=== PATIENT | male | born 1985 | race Caucasian/White ===

== ENCOUNTER 2016-08-29 09:38 | Inpatient (IN) | payer SELFPAY ==
[~2016-08-29] VITALS: Ht 180.3 cm; Wt 90.9 kg
[~2016-08-29 09:38] MED LIST: AMOX500T2 PO; GABA-336 PO; HYDR-3989 PO; NO DAILY MEDS
--- OUTSIDE RECORDS SUMMARY | 2016-08-29 09:44 | XMS REPORT ---
Author Author Jefferson Cardoza Organization [employer] Address Unknown Phone Unavailable Care Team Providers Care Radioactivity Technician Name Role Phone Jefferson Cardoza CP Unavailable Allergies, Adverse Reactions, Alerts Substance Reaction Event Type N.K.D.A. Info Not Available Non Drug Allergy Problems Problem Type Condition Code Onset Dates Condition Status Problem History of bipolar disorder Z86.59 Active Assessment Encounter for dental examination and cleaning without abnormal findings Z01.20 Active Problem Anxiety F41.9 Active Medications No Known Medications Procedures Procedure Coding System Code Date PANORAMIC FILM SEE ALSO CODE 58059 CPT-4 D0330 Apr 18, 2016 PALLIATSTEFANIE TX DENTAL PAIN-MINOR PROC CPT-4 D9110 Apr 18, 2016 LTD ORAL EVALUATION - PROBLEM FOCUS CPT-4 D0140 Apr 18, 2016 Results No Known Results Summary Purpose [employer] Submission
--- OUTSIDE RECORDS SUMMARY | 2016-08-29 09:44 | XMS REPORT ---
Author Author Tanya Negro [facility] Address [address], [place] [address] Care Team Providers Care Automobile Body Worker Name Role Phone Tanya Negro Unavailable [phone] PROBLEMS Type Condition ICD9-CM Code [id number] Code Onset Dates Condition Status SNOMED Code Problem Anxiety F41.9 Active 03586571 Problem History of bipolar disorder Z86.59 Active 368400250 Assessment Unspecified episodic mood disorder F39 Apr, Active 40473384 Assessment Encounter for consultation Z71.9 Apr, Active 988409663 Problem Unspecified episodic mood disorder F39 Active 81376569 Problem Anxiety disorder, unspecified F41.9 Active 175032890 ALLERGIES Unknown Allergies SOCIAL HISTORY No smoking Hx information available PLAN OF CARE VITAL SIGNS MEDICATIONS Unknown Medications RESULTS No Results PROCEDURES No Known procedures IMMUNIZATIONS No Known Immunizations
--- OUTSIDE RECORDS SUMMARY | 2016-08-29 09:44 | XMS REPORT ---
Author Author GENERATED, SYSTEM Organization Unknown Address Unknown Phone Unavailable Care Team Providers Care Rigging Loft Mechanic Name Role Phone UNASSIGNED DOCTOR , DOCTOR PP [phone] Reason For Visit Chief Complaint FEET FEEL NUMB Social History Functional Status Vital Signs Results Chemistry from 05/05/2015 3:38 PMSODIUM 140 MMOL/L (136-145 MMOL/L) POTASSIUM 3.5 MMOL/L (3.5-5.1 MMOL/L) CHLORIDE 104 MMOL/L (98-107 MMOL/L) TCO2 28.5 MMOL/L (21.0-32.0 MMOL/L) *ANION GAP 7.5 MMOL/L L (8.0-16.0 MMOL/L) BUN 17 MG/DL (7-18 MG/DL) CREATININE 1.03 MG/DL (0.70-1.30 MG/DL) *BUN/CREATININE RATIO 16.5 (9.1-17.0 ) GLUCOSE 138 MG/DL H (65-99 MG/DL) *GFR EST NON AFR GRE[place]DI[place] >90 ML/MIN *GFRA EST AFR AMER >90 ML/MIN CALCIUM 8.7 MG/DL (8.5-10.1 MG/DL) BILIRUBIN TOTAL 0.35 MG/DL (0.20-1.00 MG/DL) TOTAL PROTEIN 7.4 GM/DL (6.4-8.2 GM/DL) ALBUMIN 3.8 GM/DL (3.4-5.0 GM/DL) *GLOBULIN 3.6 GM/DL H (2.3-3.5 GM/DL) *A/G RATIO 1.1 MG/DL L (1.5-2.2 MG/DL) ALK PHOS 123 U/L H (46-116 U/L) ALT (SGPT) 50 U/L (14-59 U/L) AST (SGOT) 36 U/L (15-37 U/L) Hematology from 05/05/2015 3:38 PMWBC 5.7 X10e3/UL (3.6-11.2 X10e3/UL) RBC 4.86 X10e6/UL (4.06-5.63 X10e6/UL) HEMOGLOBIN 15.0 G/DL (12.5-16.3 G/DL) HEMATOCRIT 43.5 % (36.7-47.1 %) *MCV 89.6 FL (80.0-100.0 FL) *MCH 30.8 PG (27.0-33.0 PG) *MCHC 34.4 G/DL (32.0-36.0 G/DL) *RDW 13.1 % (12.3-17.0 %) *RDWSD 40.7 (37.1-47.8 ) PLATELET 251 X10e3/UL (159-386 X10e3/UL) *MPV 9.0 FL (7.4-10.4 FL) AUTOMATED DIFF PERFORMED SEGS 52.7 % *LYMPHOCYTES 29.7 % *MONOCYTES 10.6 % *EOSINOPHILS 5.9 % *BASOPHILS 1.1 % *ABSOLUTE NEUTROPHILS 3.00 X10e3/UL (1.80-7.80 X10e3/UL) *ABSOLUTE LYMPHOCYTES 1.70 X10e3/UL (1.00-3.00 X10e3/UL) *ABSOLUTE MONOCYTES 0.60 X10e3/UL (0.30-1.00 X10e3/UL) *ABSOLUTE EOSINOPHILS 0.30 X10e3/UL (0.00-0.50 X10e3/UL) *ABSOLUTE BASOPHILS 0.10 X10e3/UL (0.00-0.20 X10e3/UL) Problems Encounter Diagnosis No relevant problems exist. Encounters Encounter Diagnosis No relevant problems exist. Plan of Care Procedures No relevant procedures performed. Immunizations No immunizations administered or ordered. Hospital Course Hospital Discharge Instructions Allergies, Adverse Reactions, Alerts * Latex Allergy has not been assessed. * IV Contrast Allergy has not been assessed. Medication Medication reconciliation has not been performed.
--- OUTSIDE RECORDS SUMMARY | 2016-08-29 09:44 | XMS REPORT | Continuity of Care Document ---
Author Author PAULINA [facility] Organization [facility] Address Unknown Phone Unavailable Support Name Relationship Address Phone TAYLA PUTNAM MD Caregiver [address] [place] [address] [place] [phone] Unavailable Insurance Providers Guarantor Keyshawn Chen Address [address] [place] [id number] Email DENIED/NO PORTAL Payer [facility] Policy Number [id number] Subscriber's Name Keyshawn Chen Relationship 18 Self Group Number [id number] Advance Directives Directive Response Recorded Date/Time Advanced Directives Type None 04/18/16 9:26am Chief Complaint and Reason for Visit Chief Complaint Toothache Reason for Visit [id number] Problems Past Problems Medical Problem Onset Date Alcohol withdrawal Unknown Chest wall pain Unknown Dental infection Unknown Medications Current Home Medications Medication Dose Units Route Directions Days Qty Instructions Start Date Amoxicillin 500 Mg Tablet 500 Mg Oral Three Times A Day 10 Days 04/22 Gabapentin 100 Mg Capsule 2 Cap Oral Three Times A Day 04/18/16 Hydrocodone/Acetaminophen (Hydrocodon-Acetaminophen 5-325) 5-325 Tablet 1-2 Tab Oral Every 6 Hours as needed for Pain 15 Tablet 04/18/16 No Daily Meds 10/07/15 Social History Social History Problem Response Recorded Date/Time Onset Date Status Hx Substance Use Y IV DRUG USE, QUIT 6 MONTHS AGO 04/18/2016 9:46am Not Applicable Not Applicable Hx Alcohol Use Y 1-1 1/2 [place] DAILY 04/18/2016 9:46am Not Applicable Not Applicable Tobacco Usage smoke 10/07/2015 5:12am Not Applicable Not Applicable Query Response Start Date Stop Date Smoking Status Current every day smoker Hospital Discharge Instructions No hospital discharge instructions. Plan of Care Discharge Date 04/18/16 9:42am Disposition 01 DISCHARGED HOME, SELF-CARE Condition at Discharge Stable Instructions/Education Provided Tooth Abscess Prescriptions See Medication Section Additional Instructions/Education Follow-up with a dentist for further evaluation Care Plan and Goals Physician Care Plan Problem: Dental infection Goal: Follow up with primary care provider Instructions: Take medications and follow care plan as discussed/written Functional Status No functional status results. Allergies, Adverse Reactions, Alerts No known allergies. Immunizations No immunization records. Vital Signs Acute Vital Signs Vital Response Date/Time Temperature (Fahrenheit) 97.7 deg F (96.8 - 99.1) 04/18/2016 9:50am Temperature (Calculated Celsius) 36.58202 degrees C (36.0 - 37.3) 04/18/2016 9:50am Pulse Rate (adult) 97 bpm (60 - 100) 04/18/2016 9:50am Respiratory Rate 16 breaths/min (10 - 20) 04/18/2016 9:50am O2 Sat by Pulse Oximetry 100 % (90 - 100) 04/18/2016 9:50am Blood Pressure 169/95 mm Hg 04/18/2016 9:50am Height (Feet) 5 feet 04/18/2016 9:26am Height (Inches) 11.00 inches 04/18/2016 9:26am Weight (Kilograms) 89.000 kg 04/18/2016 9:26am Body Mass Index (BMI) 27.0 04/18/2016 9:26am Results No known relevant diagnostic tests, laboratory data and/or discharge summary. Procedures No known history of procedures. Encounters Encounter Location Arrival/Admit Date Discharge/Depart Date Attending Provider Departed Emergency Room [facility] 04/18/16 9:24am 04/18/16 9: 42am TAYLA PUTNAM MD Recent Diagnosis
--- OUTSIDE RECORDS SUMMARY | 2016-08-29 09:44 | XMS REPORT ---
Demographics Preferred Language Unknown Marital Status Unknown Buddhism Affiliation Unknown Race Unknown Ethnic Group Unknown Author Author Rena Hinson [facility] Address [address], [place] [id number] Care Team Providers Care Crew Car Driver Name Role Phone Rena Hinson Unavailable [phone] PROBLEMS Type Condition ICD9-CM Code [id number] Code Onset Dates Condition Status SNOMED Code Problem HTN (hypertension) I10 Active 08755722 Problem Plantar fasciitis M72.2 Active 637794811 Problem Cigarette nicotine dependence, uncomplicated F17.210 Active 572109580 Problem Substance abuse F19.10 Active 61021316 ALLERGIES Unknown Allergies SOCIAL HISTORY No smoking Hx information available PLAN OF CARE VITAL SIGNS MEDICATIONS Unknown Medications RESULTS No Results PROCEDURES No Known procedures IMMUNIZATIONS No Known Immunizations
--- OUTSIDE RECORDS SUMMARY | 2016-08-29 09:44 | XMS REPORT ---
Author Author Christine Pickard Organization [facility] Address [address] [place] [address] Care Team Providers Care Chicken Boner Name Role Phone NeerajChristine Unavailable [phone] PROBLEMS Type Condition ICD9-CM Code LAX24-RI Code Onset Dates Condition Status SNOMED Code Problem Anxiety F41.9 Active 90833783 Problem History of bipolar disorder Z86.59 Active 210558237 Assessment Anxiety F41.9 Apr, Active 46224620 Problem Unspecified episodic mood disorder F39 Active 54662966 Problem Anxiety disorder, unspecified F41.9 Active 073473491 ALLERGIES Substance Reaction Event Type Date Status N.K.D.A. Unknown Non Drug Allergy Apr, Unknown SOCIAL HISTORY No smoking Hx information available PLAN OF CARE VITAL SIGNS Weight 198 lbs 2016-04-18 Height 71.25 in 2016-04-18 Temperature 98.2 degrees Fahrenheit 2016-04-18 BMI 27.42 kg/m2 2016-04-18 Heart Rate 87 /min 2016-04-18 Oximetry 97 % 2016-04-18 Blood pressure systolic 148 mm Hg 2016-04-18 Blood pressure diastolic 100 mm Hg 2016-04-18 MEDICATIONS Medication Instructions Dosage Frequency Start Date End Date Duration Status Risperdal 2 MG Orally Twice every day 1 tablet 30 days Active RESULTS No Results PROCEDURES Procedure Date Ordered Related Diagnosis Body Site OFFICE VISIT, CIRCULAR KNITTER-LOW COMPLEXITY (30 MIN.) Apr 18, 2016 IMMUNIZATIONS No Known Immunizations
[2016-08-29] MEDS ORDERED: NORMAL SALINE 1,000 ML IV ONE ×2 (09:51→14:00)
--- OUTSIDE RECORDS SUMMARY | 2016-08-29 09:55 | XMS REPORT ---
Author Author GENERATED, SYSTEM Organization Unknown Address Unknown Phone Unavailable Care Team Providers Care Children'S Counselor Name Role Phone UNASSIGNED DOCTOR , DOCTOR PP [phone] Reason For Visit Chief Complaint FEET FEEL [...] H (65-99 MG/DL) *GFR EST NON AFR CITIZEN OF [place] >90 ML/MIN *GFRA EST AFR AMER >90 [...]
--- NOTE | 2016-08-29 09:59 | ERPDOC ---
Departure Disposition Decision Date: Aug 29, 2016 Disposition Decision Time: 15:10 Disposition: 02 TO [facility] Impression Impression Impression: Primary Impression: Perforated diverticulum Severity: Moderate Condition: Improved Seen By: Physician only Problems/Meds/Labs Reviewed?: Yes Medications reviewed and manag: Yes Follow up care ordered?: Yes Mental Status: Alert, Oriented HPI - Abdominal Pain General Chief Complaint: Abdominal Pain Stated Complaint: LOWER ABD PAIN Time Seen by Provider: 09:43 Source: patient (Patient presents to the ER with a 3 week complaint of intermittant LLQ pain and constipation. ) History/Exam Limitations: no limitations HPI - Abdominal Pain Occurred At: home Onset: Changing over time Duration: other Pain Scale: Now: 4/10, Worst: 10/10 Quality: cramping Location: LLQ Radiation: suprapubic Activities at Onset: none Modifying Factors: IMPROVES WITH: other (Laxitives) Associated Symptoms: denies symptoms Hx of Similar Symptoms: Yes Allergies: Coded Allergies: No Known Allergies (Unverified , 08/29/16) Past History Past Medical History Metabolic: hypertension Psychological: alcohol abuse, drug abuse Surgical History Denies Surgeries Family History Family PMH: FOUND: other Social History Smoking Status: Current every day smoker Does patient use chewing tobac: Yes # of Packs/Tins per Day: 0.5 Second Hand Exposure: Yes Substance Use Type: former substance user Substance last used: days (ago) Alcohol Intake: daily, 2+ drinks per day Last Drink: unknown Marital Status: Single Sexuality: female partner Housing: house Service: No Current Occupational Status: employed Occupational Hazard: No Advance Directives: Yes Full Code Record Review Pertinent history updated: Yes Review of Systems Constitutional Constitutional: DENIES: chills, fever Eyes Lids/Accessories: DENIES: erythema, swelling ENMT Ears: DENIES: erythema, pain Balance: DENIES: ataxia, vertigo Sinuses: DENIES: congestion, rhinorrhea Mouth/Throat: DENIES: sore throat Cardiovascular Cardiac: DENIES: chest pain, dyspnea on exertion, orthopnea Rhythm/Rate: DENIES: tachycardia Pulmonary Respiratory: DENIES: cough, dyspnea, sputum GI Upper Abdomen: DENIES: nausea, pain, vomiting Lower Abdomen: pain, DENIES: constipation, diarrhea General: DENIES: dysuria Musculoskeletal General: DENIES: cramps, pain, weakness Integumentary Skin: DENIES: color change, itching, rash Neurological General: DENIES: ataxia, change in strength, headache, numbness, poor coordination, seizures, syncope, vertigo, weakness Psychiatric Psychiatric: DENIES: anxiety, depression, nervousness Hematologic/Lymphatic Hematologic/Lymphatic: DENIES: anemia Allergic/Immunological Allergic/Immunoligical: DENIES: sneezing All other Systems All Other Systems: Reviewed and Negative Physical Exam General General Nourishment: well nourished, well developed, appears stated age, no acute distress, adult General Body Habitus: well groomed Vitals and Pain First Documented Vital Signs Date Time Temp Pulse Resp B/P Pulse Ox O2 Delivery O2 Flow Rate FiO2 08/29/16 09:40 97.9 87 14 138/85 99 Room Air Weight: Kilograms: Height (feet): 5 Height (inches): 11.00 Triage Pain Scale: RN VS reviewed by Provider: Yes Eyes (brief) Eyes Brief: found: EOMI, PERRL ENMT (brief) ENMT Brief: FOUND: TM clear, TM good light reflex, mucosa moist, NOT FOUND: pharnyx erythema Neck (brief) Neck: FOUND: trachea midline, NOT FOUND: adenopathy, nuchal rigidity, tenderness, tracheal deviation Respiratory (brief) Respiratory: FOUND: clear all nelson, equal bilaterally Cardiovascular (brief) Cardiac: FOUND: regular rate, regular rhythm Capillary Refill: <2 sec Pulses: all distal extremities, equal, strong Abdomen Inspection: NOT FOUND: distention Palpation: FOUND: soft, tender (llq), NOT FOUND: McBurney's point tender, Hurd's sign, Obturator sign, Psoas sign, Rosving's sign, aorta palpable, hepatomegaly, hernia, involuntary guarding, pulsating mass, rebound, splenomegaly, voluntary guarding Auscultation: FOUND: normoactive Lymphatic (brief) Lymphatic Brief: NOT FOUND: adenopathy Musculoskeletal (brief) Musculoskeletal Brief: NOT FOUND: spasm, tenderness Integumentary (brief) Integumentary Brief: FOUND: pink, warm Neurologic (brief) Neurological Brief: FOUND: CN w/o gross def to obs, gait w/o gross def to obs, motor-no gross deficits, sensory-no gross deficits, NOT FOUND: ataxia Psychiatric (brief) Psychiatric Brief: FOUND: alert, attentive, normal affect, oriented Differential Diagnoses Considering: Appendicitis, Biliary Colic, Bowel Obstruction, Cholecystitis, Constipation, Crohn's, Diverticulitis, Gastroenteritis, GERD, GI Bleed, Hepatitis, Hernia, IBS, Ileus, Neoplasm, Pancreatitis, Pyelonephritis, Renal Colic, Ulcer, Ulcerative Colitis, UTI, Other Progress Results/Orders Orders Procedure Category Date Status Time Iv Lock (Ed Only) EDM 08/29/16 Transmitted 09:51 Nothing By Mouth (Ed EDM 08/29/16 Transmitted Only) 09:51 Cbc W/Auto LAB 08/29/16 Complete Diff-Reflex Manual 09:51 Cmp - Comprehensive LAB 08/29/16 Complete Metabolic 09:51 Lipase LAB 08/29/16 Complete 09:51 Kub W/Upright RAD 08/29/16 Resulted 09:51 Normal Saline (Normal PHA 08/29/16 Complete Saline Iv) 09:51 Ethanol LAB 08/29/16 Complete Ketorolac (Toradol) PHA 08/29/16 Complete 10:15 UA, LAB 08/29/16 Complete Dip&Micro(Complete) & 11:53 Ct Abd/Pelvis CT 08/29/16 Resulted W/Contrast Only Iohexol (Omnipaque) PHA 08/29/16 Complete 12:54 Normal Saline (Ns) PHA 08/29/16 Complete 12:54 Saline Flush (Iv PHA 08/29/16 Complete Flush) 12:54 Normal Saline (Normal PHA 08/29/16 Complete Saline Iv) 14:00 Ertapenem (Invanz) PHA 08/29/16 In Process 15:15 Blood Culture CELESTE 08/29/16 Logged 15:16 Lactate - Lactic Acid LAB 08/29/16 Logged Procalcitonin LAB 08/29/16 Logged 15:16 Lactate - Lactic Acid LAB 08/29/16 Logged 19:46 Lab Results Laboratory Tests Test 08/29/16 10:22 08/29/16 11:53 White Blood Count 17.3T/MM3 Red Blood Count 4.63M/MM3 Hemoglobin 14.5GM/DL Hematocrit 43.0% Mean Corpuscular Volume 92.9UM3 Mean Corpuscular Hemoglobin 31.3UUG Mean Corpuscular Hemoglobin Concent 33.7GM/DL RDW Standard Deviation 40.9FL Platelet Count 374T/MM3 Mean Platelet Volume 11.0UM3 Immature Granulocyte % (Auto) % Neutrophils (%) (Auto) % Lymphocytes (%) (Auto) % Monocytes (%) (Auto) % Eosinophils (%) (Auto) % Basophils (%) (Auto) % Absolute Immature Granulocyte (auto T/MM3 Absolute Neutrophils (auto) T/MM3 Absolute Lymphocytes (auto) T/MM3 Absolute Monocytes (auto) T/MM3 Absolute Eosinophils (auto) T/MM3 Absolute Basophils (auto) T/MM3 Neutrophils % (Manual) 85.0% Lymphocytes % (Manual) 10.0% Monocytes % (Manual) 5.0% Absolute Neutrophils (Manual) 14.7T/MM3 Lymphocytes # (Manual) 1.7T/MM3 Monocytes # (Manual) 0.9T/MM3 Red Cell Morphology Comment Normal Turbidity < 20 Sodium Level 143MEQ/L Potassium Level 4.7MEQ/L Chloride Level 100MEQ/L Carbon Dioxide Level 21MEQ/L Anion Gap 22MEQ/L Blood Urea Nitrogen 21.0MG/DL Creatinine 0.9MG/DL Glomerular Filtration Rate Calc 99 BUN/Creatinine Ratio 23RATIO Glucose Level 98MG/DL Calculated Osmolality 278MOSM/KG Calcium Level 10.0MG/DL Total Bilirubin 0.80MG/DL Icterus Index < 2 Aspartate Amino Transf (AST/SGOT) 36U/L Alanine Aminotransferase (ALT/SGPT) 48U/L Alkaline Phosphatase 170U/L Total Protein 7.7G/DL Albumin 4.2G/DL Globulin 3.5G/DL Albumin/Globulin Ratio 1.2RATIO Lipase 17U/L Chemistry Specimen Hemolysis 22 Alcohol, Quantitative <10MG/DL Urine Collection Type Cleancatch-midstream Urine Color Yellow Urine Turbidity Clear Urine pH 6.0 Urine Specific [place] 1.025 Urine Protein 2+ Urine Glucose (UA) Negative Urine Ketones 3+ Urine Blood 1+ Urine Nitrite Negative Urine Bilirubin 2+ Urine Urobilinogen 2.0EU/DL Urine Leukocyte Esterase Negative Urine RBC 0-1/HPF Urine WBC 0-1/HPF Urine Bacteria 2+ Urine Mucus Present Urine Culture Indicated Cult not indicated Medications Current ED Medications Sodium Chloride (Normal Saline IV) 1,000 ml @ 0 mls/hr Q0M ONCE IV Last administered on 08/29/16 10:54; Start 08/29/16 at 09:51; Stop 08/29/16 at 09:55 ; Status DC Ketorolac Tromethamine (Toradol) 30 mg O ONCE IV Last administered on 10:54; Start 08/29/16 at 10:15; Stop 08/29/16 at 10:16; Status DC Iohexol 1 bottle 1 bottle STK-MED ONCE .ROUTE ; Start 08/29/16 at 12:54; Stop at 12:55; Status DC Sodium Chloride (NS) 100 ml @ As Directed STK-MED ONCE .ROUTE ; Start 08/29/16 at 12:54; Stop 08/29/16 at 12:55; Status DC Sodium Chloride 10 ml 10 ml STK-MED ONCE .ROUTE ; Start 08/29/16 at 12:54; Stop 08/29/16 at 12:55; Status DC Sodium Chloride 1,000 ml @ 0 mls/hr Q0M ONCE IV Last administered on 14:03; Start 08/29/16 at 14:00; Stop 08/29/16 at 14:01; Status DC Ertapenem/Sodium Chloride (Invanz/NS) 100 ml @ 200 mls/hr O ONCE IV ; Start at 15:15; Stop 08/29/16 at 15:44 Progress Progress Patient resting comfortably Consult/PCP Consult/PCP #1: Physician Contacted: Dr. Malin Time Called: 15:15 Time of first response: 15:17 Type of discussion: Phone Consult/PCP Discussion Details Admit to the Hospitalists if Possible Invanz 1gm IV Consult/PCP #2: Physician Contacted: Dr. Forde Time Called: 15:20 Time of first response: 15:25 Type of discussion: Admit Discussion/PCP Discussion Details Discussed patient examination, labs, CT findings Discussed Discusseion with Dr. Malin Comments Inpatient admit NS 100 ml/hr Blood cultures/Lactic Acid/Procalcitonin NPO Xray Xray : Reason for Exam: Abdominal Pain Xray: KUB Upright Interpretation: Normal, Reviewed Written Report CT CT : Reason for Exam: Abdominal Pain CT: Abd/Pelvis IV contrast Interpretation: Abnormal, Reviewed Written Report (Contained Perforated Diverticulum) JOHNNIE GRISSOM DO Aug 29, 2016 09:59
[2016-08-29] MEDS ORDERED: GABA-338 PO (10:04)
[2016-08-29] MEDS ORDERED: POLY119P3 PO (10:04)
[2016-08-29] MEDS ORDERED: RISP2TAB PO (10:04)
[2016-08-29] MEDS ORDERED: KETOROLAC 30mg/ml INJECTION IV ONE (10:15)
--- NOTE | 2016-08-29 10:28 | NUR ---
XRAY PT TO XRAY
[2016-08-29 10:35] LABS: HGB - HEMOGLOBIN 14.5 GM/DL (13.5-17.5); MEAN CORPUSCULAR HGB 31.3 UUG (26-34); MEAN CORPUSCULAR HGB CONC(MCHC 33.7 GM/DL (31-37); MEAN CORPUSCULAR VOLUME 92.9 UM3 (80-100); RED BLOOD COUNT 4.63 M/MM3 (4.50-5.90); WBC - WHITE BLOOD COUNT 17.3 T/MM3 (4.5-11.0)
--- NOTE | 2016-08-29 10:38 | NUR ---
XRAY PT RETURNED FROM XRAY
[2016-08-29 10:48] LABS: ALBUMIN 4.2 G/DL (3.5-5.0); ALBUMIN/GLOBULIN RATIO 1.2 RATIO (1.1-2.2); ALKALINE PHOSPHATASE 170 U/L (38-126); ALT (SGPT) 48 U/L (21-72); ANION GAP 22 MEQ/L (5-15); AST (SGOT) 36 U/L (17-59); BUN/CREATININE RATIO 23 RATIO (6-26); CHLORIDE 100 MEQ/L (98-107); CO2 - CARBON DIOXIDE 21 MEQ/L (22-30); CREATININE 0.9 MG/DL (0.8-1.5); GLOMERULAR FILTRATION RATE 99; GLUCOSE 98 MG/DL (75-110); LIPASE 17 U/L (23-300); POTASSIUM 4.7 MEQ/L (3.6-5); SODIUM 143 MEQ/L (134-144); TOTAL PROTEIN 7.7 G/DL (6.3-8.2)
[2016-08-29 11:05] LABS: LYMPHOCYTES # (MANUAL) 1.7 T/MM3 (1-4.8); MONOCYTES # (MANUAL) 0.9 T/MM3 (0-0.8); NEUTROPHILS #(MANUAL)-ABSOLUTE 14.7 T/MM3 (1.8-7.7); TOTAL CELLS COUNTED 100 %
--- NOTE | 2016-08-29 11:07 | DI ---
Indication: ITS.REASON: constipation / LLQ pain PROCEDURE: KUB W/UPRIGHT: Encounter: Initial Comparison: None Findings: The included portions of the lung bases are clear. Heart size normal. No pleural effusion. There is scattered gas and stool in the abdomen without evidence of obstruction or free air. No soft tissue mass or organomegaly. No abnormal calcification. There is mild bilateral sacroiliitis. No definite radiopaque urinary calculus. IMPRESSION: No evidence for obstruction or free air. No soft tissue mass or radiopaque urinary calculus. Mild bilateral sacroiliitis. .
[2016-08-29 12:02] LABS: BLOOD, URINE 1+ (NEGATIVE); COLOR,URINE YELLOW (YELLOW); LEUKOCYTE ESTERASE ,URINE NEGATIVE (NEGATIVE); NITRITE,URINE NEGATIVE (NEGATIVE)
[2016-08-29 12:15] LABS: MUCUS,URINE PRESENT
[2016-08-29 12:17] LABS: BACTERIA,URINE 2+ (NEGATIVE); RBC,URINE 0-1 /HPF (0-3); WBC,URINE 0-1 /HPF (0-5)
--- NOTE | 2016-08-29 12:25 | NUR ---
PT STATUS PT STATES HIS PAIN "COMES AND GOES" AND WHEN IT COMES IT IS A 6/10 NOW BUT HE FEELS LIKE T HE TORADOL HAS HELPED AND THE PAIN "COMES LESS FREQUENTLY". PT DOES NOT APPEAR TO BE IN ANY ACUTE DISTRESS.
[2016-08-29] MEDS ORDERED: IOHEXOL 300 MG/ML 100ml INJECTION ONE (12:54)
[2016-08-29] MEDS ORDERED: SALINE FLUSH 10ml SYRINGE ONE (12:54)
[2016-08-29] MEDS ORDERED: NORMAL SALINE 100 ML ONE (12:54)
--- NOTE | 2016-08-29 13:00 | NUR ---
CT PT TO CT PER COT.
--- NOTE | 2016-08-29 13:12 | NUR ---
CT RETURN PT RETURNED FROM CT AT THIS TIME.
--- NOTE | 2016-08-29 14:10 | NUR ---
PT STATUS PT STATES HE NO LONGER HAS PAIN UNLESS HE "PUSHES ON IT", IS RESTING COMFORTABLY AND DENIES ANY OTHER C/O, CALL LIGHT IN REACH.
--- NOTE | 2016-08-29 14:50 | DI ---
Indication: ITS.REASON: LLQ AND SUPRAPUBIC ABDOMINAL PAIN PROCEDURE: CT ABD/PELVIS W/CONTRAST ONLY: Encounter: Initial Comparison: None Technique: Axial CT images were performed through the abdomen and pelvis after the administration of intravenous contrast. Coronal and sagittal two-dimensional reformats. Automated Exposure Control and Iterative Reconstruction dose reducing techniques were utilized. Contrast: Omnipaque 300 99 mL Findings: CT ABDOMEN: Included portions of the lung bases are clear. Heart size normal. No pleural effusion. The liver, spleen, kidneys, pancreas, and adrenal glands are normal. The gallbladder is thin walled and nondistended, without stones. The abdominal aorta is non-aneurysmal, without significant atherosclerotic disease. There is no retroperitoneal or mesenteric adenopathy. CT PELVIS: There is a focal area of diverticulitis in the left pelvis near the pelvic brim with a probable small contained perforation. No peridiverticular abscess. There is no pelvic sidewall adenopathy. No free fluid. No definite bony destructive process. IMPRESSION: Short segment of diverticulitis in the left lower pelvis with a adjacent contained small focus of gas suggesting contained perforation. No evidence for free perforation. No peridiverticular abscess. .
--- NOTE | 2016-08-29 14:59 | NUR ---
PROVIDER DR. Jeanette GRISSOM IN ROOM WITH PT.
--- NOTE | 2016-08-29 15:10 | NUR ---
PROVIDER DR. WITT IN WITH PT.
[2016-08-29] MEDS ORDERED: ERTAPENEM 1 G in NORMAL SALINE 100 ML IV ONE (15:15)
--- NOTE | 2016-08-29 15:46 | NUR ---
REPORT REPORT CALLED TO KALA SAENZ.
[2016-08-29 15:58] VITALS: Ht 180.3 cm; Wt 90.9 kg
--- OUTSIDE RECORDS SUMMARY | 2016-08-29 15:58 | XMS REPORT ---
Author Author GENERATED, SYSTEM Organization Unknown Address Unknown Phone Unavailable Care Team Providers Care Senior Landscape Architect Name Role Phone UNASSIGNED DOCTOR , DOCTOR PP [phone] Reason For Visit Chief Complaint FEET FEEL [...] H (65-99 MG/DL) *GFR EST NON AFR [place] >90 ML/MIN *GFRA EST AFR AMER >90 [...]
[2016-08-29] MEDS ORDERED: ONDANSETRON 4mg/2ml INJECTION IV PRN (16:00)
[2016-08-29] MEDS ORDERED: FOLIC ACID 5 MG/ML INJECTION IV ONE (16:00)
[2016-08-29] MEDS ORDERED: THIAMINE 200mg/2ml INJECTION IV ONE (16:00)
--- NOTE | 2016-08-29 16:00 | NUR ---
ADMISSION PT WHEELED TO ROOM 109 BY ED STAFF. PT HELPED INTO BED. VS ASSESSED. PT ASSESSED. VS STABLE AT THIS TIME. PT RATES PAIN AT 4/10. PT ORIENTED TO SURROUNDINGS. WILL CONTINUE TO MONITOR.
--- NOTE | 2016-08-29 16:03 | HPPDOC ---
AP VEE ELECTROMECHANICAL INSPECTOR 08/29/16 1543: HPI - Adult Date DATE: 08/29/16 TIME: 15:38 General Chief Complaint: Abdominal pain History of Present Illness Jeancarlos Chen is a 31 y/o male who presented to [facility] on 08/29/16 for further evaluation of LLQ pain. He states his symptoms started about a month ago. His roommate's girlfriend had n/v/d, and he became sick with the same illness just as she felt better. He continued to have intermittent pain, especially to LLQ, along with nausea, night sweats, fever and chills. He later become constipated, and his symptoms improved after he had a bowel movement. Last bowel movement was 1 week ago. He's had some lower back discomfort, and for a while he thought he had a kidney stone (though he's never had one before and denies hematuria). His pain has also started to spread across his lower abdomen towards the right. He denies seeing any blood or having dark colored stools. He hasn't felt much like eating or drinking anything. He has felt weak and lightheaded. He denies any respiratory symptoms, dysuria, or rashes. Labs in the ED showed leukocytosis with WBC of 17.3. CT abdomen/pelvis demonstrated diverticulitis in the left lower pelvis with adjacent contained small focus of gas suggesting contained perforation. He received IVF and Invanz. Dr. Malin was consulted. Dr. Forde admitted the patient for systemic antibiotics, symptom relief, and surgical consultation. LOS is expected to exceed 2 overnights. Past Medical History Past Medical History Patient's Medical History: (1) Bipolar disorder (2) Alcohol abuse (3) Overweight (BMI 25.0-29.9) Surgical History Patient's Surgical History: Denies. Current Medications Home Meds Reported Medications Polyethylene Glycol 3350 (Miralax) 119 Gm Powder, 17 G PO DAILY 08/29/16 Risperidone (Risperdal) 2 Mg Tablet, 2 MG PO BID 08/29/16 Gabapentin (Gabapentin) 300 Mg Capsule, 300 MG PO TID 08/29/16 Allergies: Coded Allergies: No Known Allergies (Unverified , 08/29/16) Family History Family History: Positive for dementia, brain cancer, leukemia, and bipolar disorder. Social History Smoking Status: Current every day smoker (used to smoke a pack per day, now started vaping and smokes about 1 pack of cigarettes per week) Does patient use chewing tobac: Yes # of Packs/Tins per Day: 0.5 Second Hand Exposure: Yes Substance Use Type: former substance user, amphetamines (meth - injection; last used 16 months ago) Substance last used: days (ago) Alcohol Intake: daily, 2+ drinks per day (1/5 - 1L of whiskey per night; hx of alcohol withdrawal symptoms without seizure) Last Drink: unknown Marital Status: Single Sexuality: female partner Housing: house Service: No Current Occupational Status: employed 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 Pickard Review of Systems Constitutional: REPORTS: appetite decrease, chills, dizziness, fever, weakness Eyes Vision: DENIES: vision changes ENMT Sinuses: NOT FOUND: congestion, rhinorrhea Mouth/Throat: DENIES: sore throat Cardiovascular DENIES: chest pain, dyspnea on exertion Vascular: DENIES: pedal edema Pulmonary Respiratory: DENIES: cough, dyspnea GI Upper Abdomen: see HPI Lower Abdomen: see HPI General: DENIES: dysuria, hematuria Musculoskeletal General: DENIES: pain Lumbar: pain Integumentary Skin: DENIES: rash Neurological General: weakness, DENIES: ataxia, memory disturbances, syncope Psychiatric Psychiatric: other (Bipolar), DENIES: memory impairment Hematologic/Lymphatic DENIES: anemia Allergic/Immunological DENIES: frequent infections All Other Systems All Other Systems: Reviewed (remainder of 10-point ROS Neg.) Physical Exam General General Nourishment: well nourished, well developed Vital Signs Vital Signs Date Time Temp Pulse Resp B/P Pulse Ox O2 Delivery O2 Flow Rate FiO2 08/29/16 14:14 80 15 125/74 98 Room Air 08/29/16 09:40 97.9 Height (Feet): 5 Height (Inches): 11.00 Eyes Brief: FOUND: PERRL, NOT FOUND: scleral icterus ENMT Brief: FOUND: mucosa moist, NOT FOUND: pharnyx erythema Neck Brief: FOUND: other (mild erythema below left TMJ - nontender, no swelling ), NOT FOUND: adenopathy, nuchal rigidity Respiratory Auscultation: FOUND: normal, NOT FOUND: rales, rhonchi, wheezes Cardiovascular Auscultation: FOUND: S1, S2, regular Peripheral Pulses: 2+: Dorasalis Pedis (L), Dorsalis Pedis (R), Posterior Tibial (L), Posterior Tibial (R), Radial (L), Radial (R) Edema: 0: Anasarca, Arm (L), Arm (R), Face, Leg (L), Leg (R) Abdomen Inspection: NOT FOUND: distention Palpation: FOUND: soft, tender (LLA), NOT FOUND: involuntary guarding, rebound , voluntary guarding Auscultation: FOUND: hypoactive Lymphatic (brief) Lymphatic Brief: NOT FOUND: adenopathy Integumentary (brief) Integumentary Brief: FOUND: dry, pink, warm Integumentary General: FOUND: dry, warm Color: FOUND: pink Neurologic (brief) Neurological Brief: FOUND: cranial 2-12 intact (grossly), motor Neurologic GCS Eye Opening: (4)Spontaneous GCS Verbal: (5)Oriented GCS Motor: (6)Obeys Commands RN Documented GCS Total: 15 Psychiatric (brief) FOUND: alert, attentive, normal affect, oriented Laboratory Laboratory Tests Test 08/29/16 10:22 08/29/16 11:53 White Blood Count 17.3T/MM3 Red Blood Count 4.63M/MM3 Hemoglobin 14.5GM/DL Hematocrit 43.0% Mean Corpuscular Volume 92.9UM3 Mean Corpuscular Hemoglobin 31.3UUG Mean Corpuscular Hemoglobin Concent 33.7GM/DL RDW Standard Deviation 40.9FL Platelet Count 374T/MM3 Mean Platelet Volume 11.0UM3 Immature Granulocyte % (Auto) % Neutrophils (%) (Auto) % Lymphocytes (%) (Auto) % Monocytes (%) (Auto) % Eosinophils (%) (Auto) % Basophils (%) (Auto) % Absolute Immature Granulocyte (auto T/MM3 Absolute Neutrophils (auto) T/MM3 Absolute Lymphocytes (auto) T/MM3 Absolute Monocytes (auto) T/MM3 Absolute Eosinophils (auto) T/MM3 Absolute Basophils (auto) T/MM3 Neutrophils % (Manual) 85.0% Lymphocytes % (Manual) 10.0% Monocytes % (Manual) 5.0% Absolute Neutrophils (Manual) 14.7T/MM3 Lymphocytes # (Manual) 1.7T/MM3 Monocytes # (Manual) 0.9T/MM3 Red Cell Morphology Comment Normal Turbidity < 20 Sodium Level 143MEQ/L Potassium Level 4.7MEQ/L Chloride Level 100MEQ/L Carbon Dioxide Level 21MEQ/L Anion Gap 22MEQ/L Blood Urea Nitrogen 21.0MG/DL Creatinine 0.9MG/DL Glomerular Filtration Rate Calc 99 BUN/Creatinine Ratio 23RATIO Glucose Level 98MG/DL Calculated Osmolality 278MOSM/KG Calcium Level 10.0MG/DL Total Bilirubin 0.80MG/DL Icterus Index < 2 Aspartate Amino Transf (AST/SGOT) 36U/L Alanine Aminotransferase (ALT/SGPT) 48U/L Alkaline Phosphatase 170U/L Total Protein 7.7G/DL Albumin 4.2G/DL Globulin 3.5G/DL Albumin/Globulin Ratio 1.2RATIO Lipase 17U/L Chemistry Specimen Hemolysis 22 Alcohol, Quantitative <10MG/DL Urine Collection Type Cleancatch-midstream Urine Color Yellow Urine Turbidity Clear Urine pH 6.0 Urine Specific [place] 1.025 Urine Protein 2+ Urine Glucose (UA) Negative Urine Ketones 3+ Urine Blood 1+ Urine Nitrite Negative Urine Bilirubin 2+ Urine Urobilinogen 2.0EU/DL Urine Leukocyte Esterase Negative Urine RBC 0-1/HPF Urine WBC 0-1/HPF Urine Bacteria 2+ Urine Mucus Present Urine Culture Indicated Cult not indicated Assessment & Plan Problems: (1) Perforated diverticulum Status: Acute Assessment & Plan: 08/29/16 - CT Short segment of diverticulitis in the left lower pelvis with adjacent contained small focus of gas suggesting contained perforation. No evidence for free perforation. No peridiverticular abscess. (2) Bipolar disorder Status: Chronic Assessment & Plan: Ran out of Risperdal on 08/25/16 (3) Overweight (BMI 25.0-29.9) Status: Chronic (4) Alcohol abuse Status: Chronic Assessment & Plan: drinks daily Plan/Intensity of Service Admit, inpatient status for perforated diverticula. Attending: Dr. Forde. Consult Dr. Malin. Check lactate, procalcitonin, blood cultures. Invanz was started in the ED - will continue this daily. IVF - NS at 100 mL/hr. Diet - sips & chips. Zofran & Morphine PRN for symptom relief. Alcohol abuse - start thiamine & folate daily; Serax 30 mg TID. Monitor for withdrawal (although pt reports that he hasn't been able to drink most of the last several nights). Bipolar - resume home medications. PCP - Dr. Pickard. DVT Prophylaxis: SCD'S Code Status Full Code Hospital Course Summary Disclaimer The hospital course summary below is not to be considered part of the above Progress Note. Hospital Course Summary 08/29/16 Admit, inpatient status for perforated diverticula. Attending: Dr. Forde. Consult Dr. Malin. Check lactate, procalcitonin, blood cultures. Invanz was started in the ED - will continue this daily. IVF - NS at 100 mL/hr. Diet - sips & chips. Zofran & Morphine PRN for symptom relief. Alcohol abuse - start thiamine & folate daily; Serax 30 mg TID. Monitor for withdrawal (although pt reports that he hasn't been able to drink most of the last several nights). Bipolar - resume home medications. EMILIE FORDE MD 08/29/16 2449: Past Medical History Current Medications Home Meds Reported Medications Polyethylene Glycol 3350 (Miralax) 119 Gm Powder, 17 G PO DAILY 08/29/16 Risperidone (Risperdal) 2 Mg Tablet, 2 MG PO BID 08/29/16 Gabapentin (Gabapentin) 300 Mg Capsule, 300 MG PO TID 08/29/16 Allergies: Coded Allergies: No Known Allergies (Unverified , 08/29/16) Assessment & Plan Problems: (1) Perforated diverticulum Status: Acute Assessment & Plan: 08/29/16 - CT Short segment of diverticulitis in the left lower pelvis with adjacent contained small focus of gas suggesting contained perforation. No evidence for free perforation. No peridiverticular abscess. (2) Leukocytosis Status: Acute Qualifiers: Leukocytosis type: unspecified Qualified Codes: D72.829 - Elevated white blood cell count, unspecified Assessment & Plan: POA (3) Abdominal pain Status: Acute Qualifiers: Abdominal location: left lower quadrant Qualified Codes: R10.32 - Left lower quadrant pain (4) Nausea & vomiting Status: Acute Qualifiers: Vomiting type: unspecified Vomiting Intractability: non-intractable Qualified Codes: R11.2 - Nausea with vomiting, unspecified (5) Bipolar disorder Status: Chronic Assessment & Plan: Ran out of Risperdal on 08/25/16 (6) Alcohol abuse Status: Chronic Assessment & Plan: drinks daily (7) Overweight (BMI 25.0-29.9) Status: Chronic Plan/Intensity of Service Have independently interviewed and examined pt. Case discussed with ED physician and my ELECTROMECHANICAL INSPECTOR. Care plan developed with my supervision; agree with above. Developed left lower ab pain about 3-4 weeks ago. Severe initially, but did decrease after a few day. Pain since returned and waxes and wanes. Seems to be worse if passes stool. Having increase nausea and vomiting for the last 4 days. Not able to keep anything down. Notes f/c and sweats. Much more weak and unsteady. Lightheaded when stands. No falls or trauma. Breathing stable without SOA cough or congestion. No chest pressure or palpitations. No urinary pain, but decrease urine output noted. Lungs: clear, shallow breathing CV: regular AB: Soft, nondistended. BS decreased. Tender to palpation in mid to left lower quadrant. Ext: no edema MSE: awake alert appropriate. Plan: Inpatient admission. IV Invanc for antimicrobial coverage. IVF for hydration. NPO for bowel rest. Zofran and MS for nausea and pain control. IS to help pulmonary toilet due to pt shallow breathing secondary to ab pain. RT to tobacco cessation. Nicotine patch. IV lorazepam prn; routine Serax. Thiamine and folate due to ETOH use. IV Protonix as likely has some ETOHic gastritis. Sx consult. SCD. Monitor lab. AP VEE APRN Aug 29, 2016 15:43 EMILIE FORDE MD Aug 29, 2016 16:57
[2016-08-29] MEDS ORDERED: LORAZEPAM 2 MG/ML INJECTION IV PRN (16:15)
--- NOTE | 2016-08-29 16:21 | CONSPD ---
Consultation Info Date DATE: 08/29/16 TIME: 16:16 Date of Consultation: Aug 29, 2016 Attending Physician: GUSTAVO Forde Reason for Consultation: Diverticulitis HPI - Adult Date DATE: 08/29/16 TIME: 16:16 General Chief Complaint: Abdominal pain History of Present Illness PEr Dr. Malin Past Medical History Past Medical History Patient's Medical History: (1) Bipolar disorder (2) Alcohol abuse (3) Overweight (BMI 25.0-29.9) Surgical History Patient's Surgical History: Denies. Current Medications Home Meds Reported Medications Polyethylene Glycol 3350 (Miralax) 119 Gm Powder, 17 G PO DAILY 08/29/16 Risperidone (Risperdal) 2 Mg Tablet, 2 MG PO BID 08/29/16 Gabapentin (Gabapentin) 300 Mg Capsule, 300 MG PO TID 08/29/16 Allergies: Coded Allergies: No Known Allergies (Unverified , 08/29/16) Family History Family History: Positive for dementia, brain cancer, leukemia, and bipolar disorder. Social History Smoking Status: Current every day smoker (used to smoke a pack per day, now started vaping and smokes about 1 pack of cigarettes per week) Does patient use chewing tobac: Yes # of Packs/Tins per Day: 0.5 Second Hand Exposure: Yes Substance Use Type: former substance user, amphetamines (meth - injection; last used 16 months ago) Substance last used: days (ago) Alcohol Intake: daily, 2+ drinks per day (1/5 - 1L of whiskey per night; hx of alcohol withdrawal symptoms without seizure) Last Drink: unknown Marital Status: Single Sexuality: female partner Housing: house Service: No Current Occupational Status: employed 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, 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 Occupational Hazard: No Advance Directives: Yes Full Code, No DPOA for Healthcare Only GS Review of Systems General REPORTS fever, REPORTS chills Gastrointestional REPORTS constipation, REPORTS other (decreased appetite) Comments See HPI Musculoskeletal REPORTS back pain Neurological REPORTS muscle weakness Psychiatric REPORTS emotional instability (bipolar), REPORTS other (history of substance abuse) 10-point Review of Systems otherwise negative except HPI GS Physical Exam Vital Signs Date Time Temp Pulse Resp B/P Pulse Ox O2 Delivery O2 Flow Rate FiO2 08/29/16 15:57 97.9 74 14 124/68 98 Room Air Height (Feet): 5 Height (Inches): 11.00 Weight (Kilograms): 89.200 BMI 27.4 Laboratory Laboratory Tests 08/29/16 10:22 Laboratory Tests 08/29/16 10:22 VASYL HIGGINS APRN Aug 29, 2016 16:20
[2016-08-29] MEDS: OXAZEPAM 30 MG CAPSULE PO SCH (16:41)
[2016-08-29 16:45] VITALS: PULSE 74; RESP 14
[2016-08-29] MEDS: MORPHINE SULFATE 4 MG SYRINGE IV PRN ×2 (16:59→17:54)
[2016-08-29] MEDS: NORMAL SALINE 1,000 ML IV SCH (17:05)
[2016-08-29] MEDS: NICOTINE 21 MG PATCH TD SCH (17:16)
[2016-08-29] MEDS: PANTOPRAZOLE 40mg INJECTION IV SCH (17:16)
--- NOTE | 2016-08-29 17:21 | CONSF ---
DATE OF CONSULTATION 08/29/2016 FINDINGS Mr. Chen is a 31-year-old male whom I was asked to see through the emergency room today as a result of his history and physical findings of abdominal pain in conjunction with an abnormal CT scan revealing evidence for a probable contained perforated diverticulitis. Upon questioning the patient he informs me that about a month ago he had bout of some loose stools. He contributed this to perhaps having food poisoning. Patient states he then became somewhat constipated about three weeks ago and began to notice a pain within his left lower quadrant. This pain has persisted for the most part over the last three weeks. The pain has progressively become worse. Pain is made worse with movement. Pain is made somewhat better by lying down. Patient states that he has been nauseated in association with the pain and has been having episodes of vomiting after eating. The patient states that he has not eaten much in the last 24-48 hours. The patient was somewhat depressed because today was his 31th birthday and he was "stuck in the hospital." Patient denies pain similar to this in the past. He states he has been noticing a component of fever and chills. As a result of his nausea, vomiting, increasing abdominal pain, fever and chills he presented to the emergency room for further evaluation. PAST MEDICAL HISTORY, PAST SURGICAL HISTORY, MEDICATIONS, ALLERGIES, SOCIAL HISTORY, FAMILY HISTORY, REVIEW OF SYSTEMS Will be performed by my nurse practitioner, Solo Maldonado APRN PHYSICAL EXAMINATION GENERAL: Mr. Chen is a 31-year-old male who upon entering the emergency room earlier today was standing at the bedside and was "walking around." He did not appear to be in acute distress. VITAL SIGNS: Temperature 97.9, pulse 74, respirations 14, blood pressure 124/68, SAO2 98% on room air. HEENT: Normocephalic. Pupils are equally round and react to light and accommodation. CHEST: Clear to auscultation bilaterally. HEART: Regular rate and rhythm. Normal S1 and S2 without gallops, murmurs or clicks. ABDOMEN: Palpation of the abdomen does indeed reveal localized tenderness to the left lower quadrant of his abdomen. He does have a component of both voluntary and a slight component of some involuntary guarding with firm palpation of the left lower quadrant. There is, however, no evidence for rebound. The remaining abdomen is soft and nontender. One was able to palpate quite firmly within the right lower quadrant, right upper quadrant and left upper quadrant without resulting in severe pain. EXTREMITIES: Without clubbing, cyanosis, or edema. NEURO: Cranial nerves II-XII grossly intact. Patient is without focal motor or sensory deficits. LABORATORY/RADIOGRAPHIC EVALUATION The patient had a CBC obtained through the ER earlier today. He did have a component of leukocytosis with a white count of 17.3. Did have a left shift with 85% neutrophils. CMP was obtained and found to be essentially within normal limits. Alkaline phosphatase was slightly elevated at 170. UA was obtained and found to be abnormal in the fact that he was found have 3+ ketones, 2+ bilirubin. Nitrate was negative. Only 0-[address] scan of his abdomen and pelvis was obtained. CT scan of his abdomen and pelvis did reveal evidence for focal area of diverticulitis within the left pelvis near the pelvic brim. There was a "probable small contained perforation." No peridiverticular abscess was noted. ASSESSMENT 31-year-old gentleman with probable small microperforation of sigmoid colon secondary to diverticulitis. PLAN Patient is without an acute surgical abdomen at this time. It would be my recommendation that we admit him to the hospital and place him on broad-spectrum IV antibiotics. Will follow the patient closely with serial abdominal examinations. Will see if the patient's PCP or hospital system can admit the patient and consult me in regards to his abdominal pain. Will continue to follow along closely in the patient's care. PERLA
[2016-08-29 19:31] VITALS: BP 116/74; PULSE 69; RESP 16; TEMP 96.4; O2SAT 96
[2016-08-29] MEDS: RISPERIDONE 2 MG TABLET PO SCH (20:36)
[2016-08-29] MEDS: GABAPENTIN 300 MG CAPSULE PO SCH (20:37)
[2016-08-29 20:43] VITALS: PULSE 69; RESP 16
[2016-08-29] MEDS ORDERED: KETOROLAC 30mg/ml INJECTION IM PRN (22:00)
[2016-08-29] MEDS: KETOROLAC 30mg/ml INJECTION IV PRN (22:37)
[2016-08-30 00:09] VITALS: BP 123/70; PULSE 60; RESP 14; TEMP 97.1; O2SAT 97
[2016-08-30] MEDS: OXAZEPAM 30 MG CAPSULE PO SCH ×2 (00:48→09:16)
[2016-08-30] MEDS: MORPHINE SULFATE 4 MG SYRINGE IV PRN ×2 (01:01→09:18)
[2016-08-30] MEDS: NORMAL SALINE 1,000 ML IV SCH ×2 (01:30→13:08)
[2016-08-30 05:13] LABS: BASOPHILS % (AUTO) 0.3 % (0-2); EOSINOPHILS # (AUTO) 0.2 T/MM3 (0-0.5); EOSINOPHILS % (AUTO) 2.3 % (0-4); HCT - HEMATOCRIT 38.3 % (41-53); HGB - HEMOGLOBIN 12.5 GM/DL (13.5-17.5); IMMATURE GRANULOCYTE # (AUTO) 0.03 T/MM3 (0.00-0.03); IMMATURE GRANULOCYTE % (AUTO) 0.3 % (0.0-0.5); LYMPHOCYTES % (AUTO) 19.7 % (23-45); MEAN CORPUSCULAR HGB 31.3 UUG (26-34); MEAN CORPUSCULAR HGB CONC(MCHC 32.6 GM/DL (31-37); MEAN PLATELET VOLUME 10.9 UM3 (9.4-12.4); MONOCYTES # (AUTO) 1.5 T/MM3 (0-0.8); MONOCYTES % (AUTO) 15.6 % (0-9.0); NEUTROPHILS #(AUTO)-ABSOLUTE 6.1 T/MM3 (1.8-7.7); NEUTROPHILS % (AUTO) 61.8 % (33-66); RED BLOOD COUNT 3.99 M/MM3 (4.50-5.90); WBC - WHITE BLOOD COUNT 9.9 T/MM3 (4.5-11.0)
[2016-08-30 05:28] LABS: ALBUMIN 3.4 G/DL (3.5-5.0); ALBUMIN/GLOBULIN RATIO 1.1 RATIO (1.1-2.2); ALKALINE PHOSPHATASE 120 U/L (38-126); ALT (SGPT) 34 U/L (21-72); ANION GAP 12 MEQ/L (5-15); AST (SGOT) 26 U/L (17-59); BUN/CREATININE RATIO 18 RATIO (6-26); CALCIUM 8.9 MG/DL (8.4-10.2); CHLORIDE 104 MEQ/L (98-107); CO2 - CARBON DIOXIDE 27 MEQ/L (22-30); CREATININE 1.1 MG/DL (0.8-1.5); GLOMERULAR FILTRATION RATE 79; GLUCOSE 82 MG/DL (75-110); SODIUM 143 MEQ/L (134-144); TOTAL PROTEIN 6.6 G/DL (6.3-8.2)
--- NOTE | 2016-08-30 05:38 | NUR ---
SHIFT SUMMARY PT IS ALERT AND ORIENTED X3, VITAL SIGNS HAVE BEEN STABLE ON ROOM AIR, PT IS AFEBRILE. DENIES C/P,N/V AND SOA. PT HAS BEEN UP TO THE BATHROOM WITH A STANDBY TWICE THIS SHIFT. PT HAS NEEDED IV PAIN MEDICATION TWICE ON THIS SHIFT. PT HAS SLEPT THE MAJORITY OF THE NIGHT. SEIZURE PRECAUTIONS REMAIN IN PLACE. WILL CONTINUE TO MONITOR.
[2016-08-30 07:31] VITALS: BP 115/67; PULSE 87; RESP 16; TEMP 96.5; O2SAT 99
--- NOTE | 2016-08-30 08:38 | PNSURG ---
Subjective DATE: 08/30/16 TIME: 08:33 Interval History He indicates the LLQ pain is still significant needing Toradol and Morphine during the night. He chilled during the night. Denies chest pain. No stools since admission. Objective Vital Signs Date Time Temp Pulse Resp B/P Pulse Ox O2 Delivery O2 Flow Rate FiO2 08/30/16 07:31 96.5 87 16 115/67 99 Room Air Height (Feet): 5 Height (Inches): 11.00 Weight (Kilograms): 90.500 BMI 27.4 General Appearance: Awake (He was able to wake up easily verbal stimuli, but remained groogy.), Orientated x 3 Respiratory: FOUND: clear all nelson Cardiac: FOUND: regular rate, regular rhythm Abdominal Brief: FOUND: tender (LLQ) Laboratory Laboratory Tests 08/29/16 10:22 08/30/16 04:37 Laboratory Tests 08/29/16 10:22 08/30/16 04:37 GS Assessment & Plan Problems: (1) Perforated diverticulum Status: Acute Assessment Continue bowel rest Seriel abd exams DVT Prophylaxis: SCD'S Code Status Full Code Hospital Course Summary Disclaimer The visit summary below is not to be considered part of the above Progress Note. Hospital Course Summary 08/29/16 Admit, inpatient status for perforated diverticula. Attending: Dr. Forde. Consult Dr. Malin. Check lactate, procalcitonin, blood cultures. Invanz was started in the ED - will continue this daily. IVF - NS at 100 mL/hr. Diet - sips & chips. Zofran & Morphine PRN for symptom relief. Alcohol abuse - start thiamine & folate daily; Serax 30 mg TID. Monitor for withdrawal (although pt reports that he hasn't been able to drink most of the last several nights). Bipolar - resume home medications. VASYL HIGGINS STREET CLEANER Aug 30, 2016 08:36
[2016-08-30 09:00] VITALS: PULSE 87; RESP 16
[2016-08-30] MEDS: NICOTINE 21 MG PATCH TD SCH (09:10)
[2016-08-30] MEDS: PANTOPRAZOLE 40mg INJECTION IV SCH (09:10)
[2016-08-30] MEDS: NICOTINE PATCH REMOVAL TD SCH (09:11)
[2016-08-30] MEDS: FOLIC ACID 5 MG/ML INJECTION IV SCH (09:13)
[2016-08-30] MEDS: GABAPENTIN 300 MG CAPSULE PO SCH ×3 (09:16→21:22)
[2016-08-30] MEDS: THIAMINE 200mg/2ml INJECTION IV SCH (09:16)
[2016-08-30] MEDS: RISPERIDONE 2 MG TABLET PO SCH ×2 (09:16→21:22)
[2016-08-30] MEDS ORDERED: OXAZEPAM 15 MG CAPSULE PO PRN (10:00)
[2016-08-30 10:32] LABS: MAGNESIUM 2.4 MG/DL (1.6-2.3); PHOSPHORUS 3.7 MG/DL (2.5-4.5)
--- NOTE | 2016-08-30 10:41 | PNPDOC ---
Subjective Date DATE: 08/30/16 TIME: 10:22 Subjective The patient states that he is feeling about the same today. He still has some lower abdominal pain. He required pain medication last night. He denies any nausea or vomiting today. He states he does feel hungry. He denies any shortness of breath or chest pain. He has urinated at least twice since admission and states his urine is a little dark. He states prior to admission he was having occasional fevers, chills and sweats. He states he lost about 6 pounds. His been constipated and has not had a bowel movement in about a week. He has been eating very little prior to admission. He drinks a fifth to a liter of alcohol a day but was drinking less in the several days prior to admission because he could not keep it down. He has tried to quit drinking in the past and would be interested in hearing about alcohol cessation programs. He has had hallucinations in the past that he thinks are associated with quitting drinking. He has never had seizures. He feels a little anxious now about his health. He denies any hallucinations now. Objective Vital Signs Vital signs Vital Signs Date Time Temp Pulse Resp B/P Pulse Ox O2 Delivery O2 Flow Rate FiO2 08/30/16 09:18 15 08/30/16 09:00 87 08/30/16 07:31 96.5 115/67 99 Room Air GEN-alert, no acute distress, appears calm HEENT-sclera anicteric, pupils are equal, oropharynx is moist NECK-supple CV-regular rate and rhythm CHEST-clear to auscultation bilaterally ABD-soft, mild lower abdominal tenderness without rebound or guarding, no organomegaly, normal bowel sounds -no Rose EXT-no edema NEURO-no tremulousness, no signs of confusion or agitation, moves all 4 extremities without difficulty SKIN-warm and dry and without rashes Height (Feet): 5 Height (Inches): 11.00 Weight (Kilograms): 90.500 Laboratory Laboratory Laboratory Tests 08/29/16 10:22 08/30/16 04:37 Laboratory Tests 08/29/16 10:22 08/30/16 04:37 Microbiology Microbiology Microbiology Date/Time Source Procedure Growth Status 08/29/16 15:33 Peripheral/Iv Start Blood Culture - Preliminary CULTURE INITIATED - RESULTS PENDING Resulted 08/29/16 15:32 Peripheral/Iv Start Blood Culture - Preliminary CULTURE INITIATED - RESULTS PENDING Resulted Radiology CT abdomen and pelvis 08/29/2016 Included portions of the lung bases are clear. Heart size normal. No pleural effusion. The liver, spleen, kidneys, pancreas, and adrenal glands are normal. The gallbladder is thin walled and nondistended, without stones. The abdominal aorta is non-aneurysmal, without significant atherosclerotic disease. There is no retroperitoneal or mesenteric adenopathy. CT PELVIS: There is a focal area of diverticulitis in the left pelvis near the pelvic brim with a probable small contained perforation. No peridiverticular abscess. There is no pelvic sidewall adenopathy. No free fluid. No definite bony destructive process. IMPRESSION: Short segment of diverticulitis in the left lower pelvis with a adjacent contained small focus of gas suggesting contained perforation. No evidence for free perforation. No peridiverticular abscess. KUB 08/29/2016 IMPRESSION: No evidence for obstruction or free air. No soft tissue mass or radiopaque urinary calculus. Mild bilateral sacroiliitis. Assessment & Plan Problems: (1) Perforated diverticulum Status: Acute Assessment & Plan: 08/29/16 - CT Short segment of diverticulitis in the left lower pelvis with adjacent contained small focus of gas suggesting contained perforation. No evidence for free perforation. No peridiverticular abscess. (2) Leukocytosis Status: Resolved Qualifiers: Leukocytosis type: unspecified Qualified Codes: D72.829 - Elevated white blood cell count, unspecified Assessment & Plan: POA (3) Abdominal pain Status: Acute Qualifiers: Abdominal location: left lower quadrant Qualified Codes: R10.32 - Left lower quadrant pain (4) Nausea & vomiting Status: Resolved Qualifiers: Vomiting type: unspecified Vomiting Intractability: non-intractable Qualified Codes: R11.2 - Nausea with vomiting, unspecified (5) Bipolar disorder Status: Chronic Assessment & Plan: [facility] (6) Alcohol abuse Status: Chronic Assessment & Plan: drinks daily (7) Overweight (BMI 25.0-29.9) Status: Chronic Assessment Impression Contained perforated diverticulum Bipolar disorder-stable Alcohol abuse-no signs of alcohol withdrawal at this time Overweight Leukocytosis-resolved Nausea and vomiting-resolved Tobaccoism Mild anemia Plan Continue Invanz for perforated diverticulum. White count has normalized. No fevers, chills or sweats this hospitalization. Appreciate Dr. Malin's help. Diet per surgery Will decrease Serax as the patient does still somnolent. When necessary Serax will be available as well. Recommend nephrology social worker consult for alcohol treatment options. Tobacco cessation education Recheck labs tomorrow Increase activity as tolerated SCDs for DVT prophylaxis Continue Risperdal for bipolar disorder Plan/Intensity of Service Have independently interviewed and examined pt. Case discussed with ED physician and my PHARMACIST INTERN. Care plan developed with my supervision; agree with above. Developed left lower ab pain about 3-4 weeks ago. Severe initially, but did decrease after a few day. Pain since returned and waxes and wanes. Seems to be worse if passes stool. Having increase nausea and vomiting for the last 4 days. Not able to keep anything down. Notes f/c and sweats. Much more weak and unsteady. Lightheaded when stands. No falls or trauma. Breathing stable without SOA cough or congestion. No chest pressure or palpitations. No urinary pain, but decrease urine output noted. Lungs: clear, shallow breathing CV: regular AB: Soft, nondistended. BS decreased. Tender to palpation in mid to left lower quadrant. Ext: no edema MSE: awake alert appropriate. Plan: Inpatient admission. IV Invanc for antimicrobial coverage. IVF for hydration. NPO for bowel rest. Zofran and MS for nausea and pain control. IS to help pulmonary toilet due to pt shallow breathing secondary to ab pain. RT to tobacco cessation. Nicotine patch. IV lorazepam prn; routine Serax. Thiamine and folate due to ETOH use. IV Protonix as likely has some ETOHic gastritis. Sx consult. SCD. Monitor lab. DVT Prophylaxis: SCD'S Code Status Full Code Hospital Course Summary Disclaimer The hospital course summary below is not to be considered part of the above Progress Note. Hospital Course Summary 08/29/16 Admit, inpatient status for perforated diverticula. Attending: Dr. Forde. Consult Dr. Malni. Check lactate, procalcitonin, blood cultures. Invanz was started in the ED - will continue this daily. IVF - NS at 100 mL/hr. Diet - sips & chips. Zofran & Morphine PRN for symptom relief. Alcohol abuse - start thiamine & folate daily; Serax 30 mg TID. Monitor for withdrawal (although pt reports that he hasn't been able to drink most of the last several nights). Bipolar - resume home medications. RENATA TORRES MD Aug 30, 2016 10:25
--- NOTE | 2016-08-30 11:12 | NUR ---
CM CM IN TO VISIT WITH PT. CM EXPLAINED ROLE AND PROVIDED CONTACT INFORMATION. PT DENIES HOME NEEDS AND IS AWARE TO CONTACT CM SHOULD NEEDS ARISE.
[2016-08-30 15:38] VITALS: BP 138/76; PULSE 72; RESP 16; TEMP 96.8; O2SAT 93
[2016-08-30] MEDS: OXAZEPAM 15 MG CAPSULE PO SCH ×2 (15:45→21:22)
[2016-08-30] MEDS: KETOROLAC 30mg/ml INJECTION IV PRN (15:46)
[2016-08-30] MEDS: ERTAPENEM 1 G in NORMAL SALINE 100 ML IV SCH (16:22)
--- NOTE | 2016-08-30 18:48 | NUR ---
STATUS PT A/O X3 UP WITH ASSIST OF ONE WITH WALKER AND GAIT BELT. PT COMPLIANT WITH SIPS AND CHIPS BUT INCREASED TO CL LIQUIDS. CL LIQUID TRAY ORDERED. PT HAS BEEN SLEEPING ON AND OFF THROUGHOUT SHIFT. AMBULATED IN HALLS X2. PRN MORPHINE AND TORADOL GIVEN DOCUMENTED. ADEQUATE OUTPUT. PT RESTING IN BED WITH ALARM. CALL LIGHT WITHIN REACH. WILL CONTINUE TO MONITOR.
--- NOTE | 2016-08-30 19:25 | PNF ---
DATE OF SERVICE 08/30/2016 FINDINGS The patient states that he was feeling a little better. He continues to have left lower quadrant abdominal pain. EXAM Vitals: Afebrile, normotensive. Current vitals include temperature 96.8, pulse 72, respirations 16, blood pressure 138/76. CHEST: Clear to auscultation bilaterally. HEART: Regular rate and rhythm. Normal S1 and S2 without gallops, murmurs or clicks. ABDOMEN: Palpation of the still reveals localized tenderness to the left lower quadrant. The patient, however, does appear less tender today upon palpation in comparison to yesterday. Still has a component of some voluntary guarding. LABORATORY/RADIOGRAPHIC EVALUATION Patient had a CBC today and his white count has gone from 17,000 down to 9.9. CMP obtained and found to be essentially within normal limits. ASSESSMENT 31-year-old male with small microperforation, most likely secondary to diverticulitis involving the sigmoid colon. Patient making clinical and laboratory improvement. PLAN Will go ahead and give the patient some clear liquids this evening. Will continue with broad-spectrum antibiotics. Will continue to follow with serial abdominal examinations. Tomorrow if he continues to improve, will slowly advance diet. Overall pleased with the patient's progress at this time. PERLA
[2016-08-31 00:15] VITALS: BP 136/86; PULSE 76; RESP 12; TEMP 97.9; O2SAT 92
[2016-08-31] MEDS: NORMAL SALINE 1,000 ML IV SCH ×2 (00:19→09:54)
[2016-08-31] MEDS: KETOROLAC 30mg/ml INJECTION IV PRN ×2 (03:16→16:25)
[2016-08-31] MEDS: OXAZEPAM 15 MG CAPSULE PO SCH ×3 (03:16→21:23)
--- NOTE | 2016-08-31 05:07 | NUR ---
SHIFT SUMMARY PATIENT IS ALERT AND ORIENTED X3 THIS SHIFT. VITAL SIGNS ARE STABLE ON ROOM AIR. PATIENT AMBULATED IN HALLS WITH ASSIST X1 ONCE THIS SHIFT. OTHERWISE, PATIENT HAS SLEPT MOST OF SHIFT. ONE PRN DOSE OF TORADOL WAS GIVEN FOR PAIN. PATIENT DENIES ANY NAUSEA OR VOMITING. WILL CONTINUE TO MONITOR.
[2016-08-31 05:55] LABS: BASOPHILS % (AUTO) 0.4 % (0-2); EOSINOPHILS # (AUTO) 0.2 T/MM3 (0-0.5); HCT - HEMATOCRIT 38.4 % (41-53); HGB - HEMOGLOBIN 12.8 GM/DL (13.5-17.5); IMMATURE GRANULOCYTE # (AUTO) 0.03 T/MM3 (0.00-0.03); IMMATURE GRANULOCYTE % (AUTO) 0.4 % (0.0-0.5); LYMPHOCYTES # (AUTO) 1.6 T/MM3 (1-4.8); LYMPHOCYTES % (AUTO) 22.2 % (23-45); MEAN CORPUSCULAR HGB 31.3 UUG (26-34); MEAN CORPUSCULAR HGB CONC(MCHC 33.3 GM/DL (31-37); MEAN CORPUSCULAR VOLUME 93.9 UM3 (80-100); MEAN PLATELET VOLUME 11.3 UM3 (9.4-12.4); MONOCYTES # (AUTO) 1.2 T/MM3 (0-0.8); MONOCYTES % (AUTO) 16.8 % (0-9.0); NEUTROPHILS % (AUTO) 57.2 % (33-66); RED BLOOD COUNT 4.09 M/MM3 (4.50-5.90)
[2016-08-31 06:13] LABS: ANION GAP 14 MEQ/L (5-15); BUN/CREATININE RATIO 14 RATIO (6-26); CALCIUM 8.7 MG/DL (8.4-10.2); CHLORIDE 106 MEQ/L (98-107); CO2 - CARBON DIOXIDE 24 MEQ/L (22-30); CREATININE 0.8 MG/DL (0.8-1.5); GLOMERULAR FILTRATION RATE 114; GLUCOSE 88 MG/DL (75-110); POTASSIUM 3.8 MEQ/L (3.6-5); SODIUM 144 MEQ/L (134-144)
--- NOTE | 2016-08-31 08:48 | PNSURG ---
Subjective DATE: 08/31/16 TIME: 08:42 Interval History Sleeping upon my arrival, he awakened easily with verbal stimuli. States he slept fairly well during the night. Still having LLQ abd pain, but intensity has decreased. Upon palpation LLQ less tender than yesterday. He would like more to eat. Objective Vital Signs Date Time Temp Pulse Resp B/P Pulse Ox O2 Delivery O2 Flow Rate FiO2 08/31/16 00:15 97.9 76 12 136/86 92 Room Air Height (Feet): 5 Height (Inches): 11.00 Weight (Kilograms): 90.500 BMI 27.4 General Appearance: Orientated x 3 Respiratory: FOUND: clear all nelson Cardiac: FOUND: regular rate, regular rhythm Abdominal Brief: FOUND: BS normo active x4, tender (LLQ with palpation, but less than yesterday, I was able to palpate deeper with less than pain than yesterday) Laboratory Trend WBC's Test 08/29/16 10:22 08/30/16 04:37 08/31/16 04:49 White Blood Count 17.3T/MM3 (4.5-11.0) 9.9T/MM3 (4.5-11.0) 7.0T/MM3 (4.5-11.0) Laboratory Tests 08/29/16 10:22 08/30/16 04:37 08/31/16 04:50 Laboratory Tests 08/29/16 10:22 08/30/16 04:37 08/31/16 04:49 Assessment & Plan Problems: (1) Perforated diverticulum Status: Acute Assessment HGB 7.0 (9.9 yesterday and 17.3 on admission) LLQ pain is decreasing. No N/V. Will start full liquids, perhaps advance to regular by evening. Will need Diverticulitis protocol ABX upon discharge there a couple of options, Augmentin and Flagyl, Cipro and Flagyl, Bactrim and Flagyl, all per [facility] or Epocrates. DVT Prophylaxis: SCD'S Code Status Full Code Hospital Course Summary Disclaimer The visit summary below is not to be considered part of the above Progress Note. Hospital Course Summary 08/29/16 Admit, inpatient status for perforated diverticula. Attending: Dr. Forde. Consult Dr. Malin. Check lactate, procalcitonin, blood cultures. Invanz was started in the ED - will continue this daily. IVF - NS at 100 mL/hr. Diet - sips & chips. Zofran & Morphine PRN for symptom relief. Alcohol abuse - start thiamine & folate daily; Serax 30 mg TID. Monitor for withdrawal (although pt reports that he hasn't been able to drink most of the last several nights). Bipolar - resume home medications. VASYL HIGGINS SOFTWARE APPLICATIONS DESIGNER Aug 31, 2016 08:45
[2016-08-31] MEDS: NICOTINE PATCH REMOVAL TD SCH (09:00)
[2016-08-31] MEDS: PANTOPRAZOLE 40mg INJECTION IV SCH (09:52)
[2016-08-31] MEDS: FOLIC ACID 5 MG/ML INJECTION IV SCH (09:52)
[2016-08-31] MEDS: RISPERIDONE 2 MG TABLET PO SCH ×2 (09:53→21:23)
[2016-08-31] MEDS: THIAMINE 200mg/2ml INJECTION IV SCH (09:53)
[2016-08-31] MEDS: GABAPENTIN 300 MG CAPSULE PO SCH ×3 (09:53→21:23)
[2016-08-31] MEDS: NICOTINE 21 MG PATCH TD SCH (09:54)
[2016-08-31 10:24] VITALS: PULSE 76; RESP 12
[2016-08-31 10:57] VITALS: BP 148/88; PULSE 61; RESP 16; TEMP 97.4; O2SAT 99
--- NOTE | 2016-08-31 11:08 | NUR ---
CM CM IN TO VISIT PT. PT DENIES NEEDS AT THIS TIME AND IS AWARE TO CONTACT CM SHOULD NEEDS ARISE.
--- NOTE | 2016-08-31 12:37 | NUR ---
REFUSED WALK PT SLEEPING IN ROOM AT THIS TIME. THIS RN ROUNDING ON PT AND OFFERED A WALK, PT REFUSED. WILL TRY AGAIN AT A LATER TIME.
[2016-08-31] MEDS: ERTAPENEM 1 G in NORMAL SALINE 100 ML IV SCH (15:15)
[2016-08-31 16:35] VITALS: BP 154/98; PULSE 77; RESP 16; TEMP 97.4; O2SAT 93
[2016-08-31 18:07] VITALS: BP 139/85
--- NOTE | 2016-08-31 18:46 | NUR ---
PROGRESS NOTE PT ALERT AND ORIENTED X3. VITAL SIGNS STABLE, ON RA. ELEVATED BLOOD PRESSURE NOTED FOR 4PM VS, RECHECKED SHORTLY AFTER AND WAS PT'S BASELINE. THE PT HAS NS RUNNING AT 50 THROUGH HIS LEFT HAND IV SITE. THE PT HAS TOLERATED A FULL LIQUID DIET WELL AND DENIES NAUSEA. THE PT HAS BEEN GIVEN ONE DOSE OF PRN TORADOL THIS SHIFT FOR A HEADACHE. THE PT HAS WALKED THE HALLS TWICE THIS SHIFT, STEADY ON FEET. PT RESTING IN BED AT THIS TIME, PT REFUSES SCDS THIS SHIFT. NO CONCERNS NOTED, WILL CONTINUE TO MONITOR.
[2016-08-31] MEDS: ACETAMINOPHEN 500 MG TABLET PO PRN (19:39)
--- NOTE | 2016-08-31 19:59 | PNPDOC ---
Subjective Date DATE: 08/31/16 TIME: 19:55 Subjective The patient was seen this morning in his room. He stated he was starting to feel better. Appetite was improving. His pain was a 4 or 5 on a scale of 1-10. He had no nausea. He denied any anxiety, tremulousness or hallucinations. He denied any chest pains or shortness of breath. He was urinating without difficulty. Objective Vital Signs Vital signs Vital Signs Date Time Temp Pulse Resp B/P Pulse Ox O2 Delivery O2 Flow Rate FiO2 08/31/16 18:07 139/85 08/31/16 16:35 97.4 77 16 93 Room Air GEN-alert, oriented, no acute distress CV-regular rate and rhythm CHEST-clear to auscultation bilaterally ABD-soft, decreased tenderness , nondistended with positive hypoactive bowel sounds -no Rose EXT-no edema NEURO-no focal deficits, the patient is oriented and alert, no tremulousness SKIN-warm and dry and without rashes Height (Feet): 5 Height (Inches): 11.00 Weight (Kilograms): 90.500 Laboratory Laboratory Laboratory Tests 08/30/16 04:37 08/31/16 04:50 Laboratory Tests 08/30/16 04:37 08/31/16 04:49 Microbiology Microbiology Microbiology Date/Time Source Procedure Growth Status 08/29/16 15:33 Peripheral/Iv Start Blood Culture - Preliminary NO GROWTH AFTER 48 HOURS Resulted 08/29/16 15:32 Peripheral/Iv Start Blood Culture - Preliminary NO GROWTH AFTER 48 HOURS Resulted Assessment & Plan Problems: (1) Perforated diverticulum Status: Acute Assessment & Plan: 08/29/16 - CT Short segment of diverticulitis in the left lower pelvis with adjacent contained small focus of gas suggesting contained perforation. No evidence for free perforation. No peridiverticular abscess. (2) Leukocytosis Status: Resolved Qualifiers: Leukocytosis type: unspecified Qualified Codes: D72.829 - Elevated white blood cell count, unspecified Assessment & Plan: POA (3) Abdominal pain Status: Acute Qualifiers: Abdominal location: left lower quadrant Qualified Codes: R10.32 - Left lower quadrant pain (4) Nausea & vomiting Status: Resolved Qualifiers: Vomiting type: unspecified Vomiting Intractability: non-intractable Qualified Codes: R11.2 - Nausea with vomiting, unspecified (5) Bipolar disorder Status: Chronic Assessment & Plan: Ran out of Risperdal on 08/25/16 (6) Alcohol abuse Status: Chronic Assessment & Plan: drinks daily (7) Overweight (BMI 25.0-29.9) Status: Chronic Assessment 08/31/2016 Impression Contained perforated diverticulum-symptomatically improving Bipolar disorder-stable Alcohol abuse-no signs of alcohol withdrawal at this time on tapering doses of Serax Overweight Leukocytosis-resolved Nausea and vomiting-resolved Tobaccoism Mild anemia Plan Continue Invanz for perforated diverticulum. White count has normalized. No fevers, chills or sweats this hospitalization. Appreciate Dr. Malin's help. Diet per surgery Continue to taper Serax Recommend medical social consultant consult for alcohol treatment options. Tobacco cessation education Recheck labs tomorrow Increase activity as tolerated SCDs for DVT prophylaxis Continue Risperdal for bipolar disorder Plan/Intensity of Service Have independently interviewed and examined pt. Case discussed with ED physician and my [employer] TEACHER. Care plan developed with my supervision; agree with above. Developed left lower ab pain about 3-4 weeks ago. Severe initially, but did decrease after a few day. Pain since returned and waxes and wanes. Seems to be worse if passes stool. Having increase nausea and vomiting for the last 4 days. Not able to keep anything down. Notes f/c and sweats. Much more weak and unsteady. Lightheaded when stands. No falls or trauma. Breathing stable without SOA cough or congestion. No chest pressure or palpitations. No urinary pain, but decrease urine output noted. Lungs: clear, shallow breathing CV: regular AB: Soft, nondistended. BS decreased. Tender to palpation in mid to left lower quadrant. Ext: no edema MSE: awake alert appropriate. Plan: Inpatient admission. IV Invanc for antimicrobial coverage. IVF for hydration. NPO for bowel rest. Zofran and MS for nausea and pain control. IS to help pulmonary toilet due to pt shallow breathing secondary to ab pain. RT to tobacco cessation. Nicotine patch. IV lorazepam prn; routine Serax. Thiamine and folate due to ETOH use. IV Protonix as likely has some ETOHic gastritis. Sx consult. SCD. Monitor lab. DVT Prophylaxis: SCD'S Code Status Full Code Hospital Course Summary Disclaimer The hospital course summary below is not to be considered part of the above Progress Note. Hospital Course Summary 08/29/16 Admit, inpatient status for perforated diverticula. Attending: Dr. Forde. Consult Dr. Malin. Check lactate, procalcitonin, blood cultures. Invanz was started in the ED - will continue this daily. IVF - NS at 100 mL/hr. Diet - sips & chips. Zofran & Morphine PRN for symptom relief. Alcohol abuse - start thiamine & folate daily; Serax 30 mg TID. Monitor for withdrawal (although pt reports that he hasn't been able to drink most of the last several nights). Bipolar - resume home medications. 08/30/2016 Impression Contained perforated diverticulum Bipolar disorder-stable Alcohol abuse-no signs of alcohol withdrawal at this time Overweight Leukocytosis-resolved Nausea and vomiting-resolved Tobaccoism Mild anemia Plan Continue Invanz for perforated diverticulum. White count has normalized. No fevers, chills or sweats this hospitalization. Appreciate Dr. Malin's help. Diet per surgery Will decrease Serax as the patient does still somnolent. When necessary Serax will be available as well. Recommend medical social consultant consult for alcohol treatment options. Tobacco cessation education Recheck labs tomorrow Increase activity as tolerated SCDs for DVT prophylaxis Continue Risperdal for bipolar disorder RENATA TORRES MD Aug 31, 2016 19:59
[2016-09-01 00:50] VITALS: BP 140/96; PULSE 59; RESP 12; TEMP 97.2; O2SAT 93
--- NOTE | 2016-09-01 05:00 | NUR ---
SHIFT SUMMARY PATIENT IS ALERT AND ORIENTED X3 THIS SHIFT. VITAL SIGNS ARE STABLE ON ROOM AIR. PATIENT HAS BEEN UP AT [facility] IN ROOM. PATIENT HAS DECLINED AMBULATING AND SCDS THIS SHIFT. PATIENT HAD A HEADACHE EARLY IN SHIFT. AN ORDER WAS OBTAINED FOR PRN TYLENOL, AND DISCOMFORT RESOLVED. PATIENT HAS SLEPT QUIETLY THROUGH THE NIGHT.
[2016-09-01] MEDS: NORMAL SALINE 1,000 ML IV SCH (05:57)
[2016-09-01 08:40] VITALS: BP 153/102; PULSE 66; RESP 16; TEMP 96.4; O2SAT 97
[2016-09-01] MEDS: NICOTINE PATCH REMOVAL TD SCH (08:41)
[2016-09-01] MEDS: PANTOPRAZOLE 40mg INJECTION IV SCH (08:41)
[2016-09-01] MEDS: FOLIC ACID 5 MG/ML INJECTION IV SCH (08:41)
[2016-09-01] MEDS: NICOTINE 21 MG PATCH TD SCH (08:41)
[2016-09-01] MEDS: OXAZEPAM 15 MG CAPSULE PO SCH (08:41)
[2016-09-01] MEDS: THIAMINE 200mg/2ml INJECTION IV SCH (08:41)
[2016-09-01] MEDS: GABAPENTIN 300 MG CAPSULE PO SCH ×2 (08:42→15:15)
[2016-09-01] MEDS: RISPERIDONE 2 MG TABLET PO SCH (08:42)
[2016-09-01 08:48] LABS: BASOPHILS # (AUTO) 0.1 T/MM3 (0-0.2); BASOPHILS % (AUTO) 0.8 % (0-2); EOSINOPHILS # (AUTO) 0.2 T/MM3 (0-0.5); EOSINOPHILS % (AUTO) 3.7 % (0-4); HCT - HEMATOCRIT 42.2 % (41-53); HGB - HEMOGLOBIN 14.2 GM/DL (13.5-17.5); IMMATURE GRANULOCYTE # (AUTO) 0.04 T/MM3 (0.00-0.03); IMMATURE GRANULOCYTE % (AUTO) 0.6 % (0.0-0.5); LYMPHOCYTES # (AUTO) 1.8 T/MM3 (1-4.8); MEAN CORPUSCULAR HGB 31.2 UUG (26-34); MEAN CORPUSCULAR HGB CONC(MCHC 33.6 GM/DL (31-37); MEAN CORPUSCULAR VOLUME 92.7 UM3 (80-100); MEAN PLATELET VOLUME 10.7 UM3 (9.4-12.4); MONOCYTES # (AUTO) 0.9 T/MM3 (0-0.8); NEUTROPHILS #(AUTO)-ABSOLUTE 3.5 T/MM3 (1.8-7.7); NEUTROPHILS % (AUTO) 53.9 % (33-66); RED BLOOD COUNT 4.55 M/MM3 (4.50-5.90); WBC - WHITE BLOOD COUNT 6.6 T/MM3 (4.5-11.0)
[2016-09-01 09:01] LABS: ALBUMIN 3.7 G/DL (3.5-5.0); ANION GAP 11 MEQ/L (5-15); BUN/CREATININE RATIO 16 RATIO (6-26); CALCIUM 9.4 MG/DL (8.4-10.2); CHLORIDE 107 MEQ/L (98-107); CO2 - CARBON DIOXIDE 28 MEQ/L (22-30); CREATININE 0.8 MG/DL (0.8-1.5); GLOMERULAR FILTRATION RATE 114; GLUCOSE 116 MG/DL (75-110); PHOSPHORUS 5.1 MG/DL (2.5-4.5); POTASSIUM 4.6 MEQ/L (3.6-5); SODIUM 146 MEQ/L (134-144)
--- NOTE | 2016-09-01 11:05 | NUR ---
CM CM IN TO VISIT WITH PT. PT DID NOT FIND A RIDE HOME AND CAB VOUCHER WAS PROVIDED. PT DENIES ANY FURTHER HOME NEEDS AT TIME OF DC. PT IS AWARE TO CALL CM SHOULD NEEDS ARISE.
[2016-09-01] MEDS ORDERED: NICO1PAT16 TD (11:55)
[2016-09-01] MEDS ORDERED: SULF1TAB42 PO (11:55)
[2016-09-01] MEDS ORDERED: THIA100T13 PO (11:55)
[2016-09-01] MEDS ORDERED: ACET-2723 PO (11:55)
--- NOTE | 2016-09-01 12:10 | DSPDOC ---
General Date Date DATE: 09/01/16 TIME: 11:57 Attending Physician Tonia Jackson MD Admitting Physician Tonia Jackson MD Consulting Physician Juan Witt MD,Facs,Cws Admitting Diagnosis 1. Perforated Diverticulum Discharge Diagnosis Perforated diverticulum Bipolar disorder Alcohol abuse Overweight Procedures None Laboratory Laboratory Tests Test 08/31/16 04:49 08/31/16 04:50 09/01/16 08:29 White Blood Count 7.0T/MM3 (4.5-11.0) 6.6T/MM3 (4.5-11.0) Red Blood Count 4.09M/MM3 (4.50-5.90) 4.55M/MM3 (4.50-5.90) Hemoglobin 12.8GM/DL (13.5-17.5) 14.2GM/DL (13.5-17.5) Hematocrit 38.4% (41-53) 42.2% (41-53) Mean Corpuscular Volume 93.9UM3 (80-100) 92.7UM3 (80-100) Mean Corpuscular Hemoglobin 31.3UUG (26-34) 31.2UUG (26-34) Mean Corpuscular Hemoglobin Concent 33.3GM/DL (31-37) 33.6GM/DL (31-37) RDW Standard Deviation 41.4FL (36.9-50.2) 40.7FL (36.9-50.2) Platelet Count 360T/MM3 (130-400) 392T/MM3 (130-400) Mean Platelet Volume 11.3UM3 (9.4-12.4) 10.7UM3 (9.4-12.4) Immature Granulocyte % (Auto) 0.4% (0.0-0.5) 0.6% (0.0-0.5) Neutrophils (%) (Auto) 57.2% (33-66) 53.9% (33-66) Lymphocytes (%) (Auto) 22.2% (23-45) 27.0% (23-45) Monocytes (%) (Auto) 16.8% (0-9.0) 14.0% (0-9.0) Eosinophils (%) (Auto) 3.0% (0-4) 3.7% (0-4) Basophils (%) (Auto) 0.4% (0-2) 0.8% (0-2) Absolute Immature Granulocyte (auto 0.03T/MM3 (0.00-0.03) 0.04T/MM3 (0.00-0.03) Absolute Neutrophils (auto) 4.0T/MM3 (1.8-7.7) 3.5T/MM3 (1.8-7.7) Absolute Lymphocytes (auto) 1.6T/MM3 (1-4.8) 1.8T/MM3 (1-4.8) Absolute Monocytes (auto) 1.2T/MM3 (0-0.8) 0.9T/MM3 (0-0.8) Absolute Eosinophils (auto) 0.2T/MM3 (0-0.5) 0.2T/MM3 (0-0.5) Absolute Basophils (auto) 0.0T/MM3 (0-0.2) 0.1T/MM3 (0-0.2) Turbidity < 20 (0-20) < 20 (0-20) Sodium Level 144MEQ/L (134-144) 146MEQ/L (134-144) Potassium Level 3.8MEQ/L (3.6-5) 4.6MEQ/L (3.6-5) Chloride Level 106MEQ/L (98-107) 107MEQ/L (98-107) Carbon Dioxide Level 24MEQ/L (22-30) 28MEQ/L (22-30) Anion Gap 14MEQ/L (5-15) 11MEQ/L (5-15) Blood Urea Nitrogen 11.0MG/DL (9-20) 13.0MG/DL (9-20) Creatinine 0.8MG/DL (0.8-1.5) 0.8MG/DL (0.8-1.5) Glomerular Filtration Rate Calc 114 114 BUN/Creatinine Ratio 14RATIO (6-26) 16RATIO (6-26) Glucose Level 88MG/DL (75-110) 116MG/DL (75-110) Calculated Osmolality 275MOSM/KG (261-280) 282MOSM/KG (261-280) Calcium Level 8.7MG/DL (8.4-10.2) 9.4MG/DL (8.4-10.2) Icterus Index < 2 (0-7) < 2 (0-7) Chemistry Specimen Hemolysis < 15 (0-25) < 15 (0-25) Phosphorus Level 5.1MG/DL (2.5-4.5) Albumin 3.7G/DL (3.5-5.0) Microbiology Microbiology Date/Time Source Procedure Growth Status 08/29/16 15:33 Peripheral/Iv Start Blood Culture - Preliminary NO GROWTH AFTER 48 HOURS Resulted 08/29/16 15:32 Peripheral/Iv Start Blood Culture - Preliminary NO GROWTH AFTER [address] abdomen and pelvis Findings: CT ABDOMEN: Included portions of the lung bases are clear. Heart size normal. No pleural effusion. The liver, spleen, kidneys, pancreas, and adrenal glands are normal. The gallbladder is thin walled and nondistended, without stones. The abdominal aorta is non-aneurysmal, without significant atherosclerotic disease. There is no retroperitoneal or mesenteric adenopathy. CT PELVIS: There is a focal area of diverticulitis in the left pelvis near the pelvic brim with a probable small contained perforation. No peridiverticular abscess. There is no pelvic sidewall adenopathy. No free fluid. No definite bony destructive process. IMPRESSION: Short segment of diverticulitis in the left lower pelvis with a adjacent contained small focus of gas suggesting contained perforation. No evidence for free perforation. No peridiverticular abscess. History of Present Illness Jeancarlos Chen is a 31 y/o male who presented to [facility] ED on 08/29/16 for further evaluation of LLQ pain. He states his symptoms started about a month ago. His roommate's girlfriend had n/v/d, and he became sick with the same illness just as she felt better. He continued to have intermittent pain, especially to LLQ, along with nausea, night sweats, fever and chills. He later become constipated, and his symptoms improved after he had a bowel movement. Last bowel movement was 1 week ago. He's had some lower back discomfort, and for a while he thought he had a kidney stone (though he's never had one before and denies hematuria). His pain has also started to spread across his lower abdomen towards the right. He denies seeing any blood or having dark colored stools. He hasn't felt much like eating or drinking anything. He has felt weak and lightheaded. He denies any respiratory symptoms, dysuria, or rashes. Labs in the ED showed leukocytosis with WBC of 17.3. CT abdomen/pelvis demonstrated diverticulitis in the left lower pelvis with adjacent contained small focus of gas suggesting contained perforation. He received IVF and Invanz. Dr. Witt was consulted. Dr. Forde admitted the patient for systemic antibiotics, symptom relief, and surgical consultation. LOS is expected to exceed 2 overnights. Hospital Course 09/01/2016 The patient states he is feeling well today. He denies any abdominal pain. He is eating regular food without difficulties. He has had some soft bowel movements. No nausea or vomiting. No shortness of breath. No confusion. No tremulousness. His legs are a little restless and he states that that's common for him after he takes his Risperdal. Overall, the patient has done quite well and appears to be ready for dismissal to home. On exam today he is alert and oriented 3 and in no acute distress. He does not have any tremulousness of his hands. His legs are a little bit restless. His thought processes are normal. Chest is clear to auscultation. Cardiovascular reveals a regular rate and rhythm. Abdomen is soft and nontender and nondistended with positive bowel sounds. He has not required any narcotics for over 48 hours. He had a shot of Toradol yesterday afternoon but has not required any other pain medication. Hospital course The patient was admitted with diagnosis of ruptured diverticulum which was contained. Dr. Witt did evaluate the patient and he recommended IV Invanz and bowel rest. The patient has done quite well. Leukocytosis has resolved. Abdominal pain has resolved. He has tolerated restarting a regular diet. Regarding his ruptured diverticulum, it was felt that he was stable for dismissal to home today. We'll discontinue Invanz after today's dose and will start Bactrim DS 1 by mouth twice a day for 7 days to start tomorrow. It was found during this hospital course that the patient is drinking a large amount of alcohol. He is uncertain if he wants to quit drinking alcohol but is open to talking with our social insurance adviser regarding treatment options. He will talk with the social insurance adviser today prior to discharge. I did recommend to the patient that he quit drinking alcohol. The patient also has bipolar disorder and has been taking his usual Resporal which she states is working well. He did state that it causes his legs to be somewhat restless and I did recommend that he discuss this with Dr. Ocampo. Regarding tobaccoism, the patient is on nicotine patch and will give him a prescription for nicotine patch at discharge if he decides to quit smoking. Patient will need follow-up in the next one week with Dr. Ocampo. The patient should follow-up in the next 2-[address] Witt and they will consider a colonoscopy at that time. If the patient should develop excessive diarrhea, increased abdominal pain, frequent nausea or vomiting, any rash, any confusion, or any other concerning symptoms he should seek medical attention. The patient was given a cab voucher on the day of dismissal. Greater than 30 minutes of time was spent seeing and evaluating the patient on dismissal day. Problems: (1) Perforated diverticulum Status: Acute Assessment & Plan: 08/29/16 - CT Short segment of diverticulitis in the left lower pelvis with adjacent contained small focus of gas suggesting contained perforation. No evidence for free perforation. No peridiverticular abscess. (2) Leukocytosis Status: Resolved Assessment & Plan: POA (3) Abdominal pain Status: Acute (4) Nausea & vomiting Status: Resolved (5) Bipolar disorder Status: Chronic Assessment & Plan: Ran out of Risperdal on 08/25/16 (6) Alcohol abuse Status: Chronic Assessment & Plan: drinks daily (7) Overweight (BMI 25.0-29.9) Status: Chronic DVT Prophylaxis: SCD'S Code Status Full Code Home Meds Active Scripts Sulfamethoxazole/Trimethoprim (Bactrim Ds Tablet) 1 Each Tablet, 1 TAB PO BID, # 14 TAB Take 1 tablet, by mouth, 2 times a day. Prov:TONIA JACKSON MD 09/01/16 Thiamine (Thiamine HCl) 100 Mg Tablet, 100 MG PO DAILY, #30 TAB Prov:TONIA JACKSON MD 09/01/16 Acetaminophen (Tylenol Extra Strength) 500 Mg Tablet, 1000 MG PO Q6HR Y for PAIN , #30 TAB Prov:TONIA JACKSON MD 09/01/16 Nicotine (Nicotine Patch 21 mg/24hr) 1 Each Patch.td24, 1 REMOVAL TD DAILY, #28 Prov:TONIA JACKSON MD 09/01/16 Reported Medications Polyethylene Glycol 3350 (Miralax) 119 Gm Powder, 17 G PO DAILY 08/29/16 Risperidone (Risperdal) 2 Mg Tablet, 2 MG PO BID 08/29/16 Gabapentin (Gabapentin) 300 Mg Capsule, 300 MG PO TID 08/29/16 Face to Face Encounter I met with patient on the day of dismissal and discussed follow up appointments , medications, and safety plan. Discharge Disposition Dismiss to home in stable condition Copies To 1: KOLBY OCAMPO Copies To 2: JUAN WITT MD, FACS, CWS TONIA JACKSON MD Sep 01, 2016 12:00
[2016-09-01] MEDS: ERTAPENEM 1 G in NORMAL SALINE 100 ML IV SCH (12:12)
--- NOTE | 2016-09-01 12:14 | NUR ---
INVANZ VERBAL ORDERS TO GIVE 1500 DOSE OF INVANZ 1 G IV NOW DUE TO PT BEING DISMISSED. WILL CONTINUE TO MONITOR.
[2016-09-01] MEDS: ACETAMINOPHEN 500 MG TABLET PO PRN (12:53)
--- NOTE | 2016-09-01 15:10 | NUR ---
CM THIS WORKER MET WITH PT ON THIS DATE. 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 PT REPORTED HIS DAILY ALCOHOL INTAKE A REPLACEMENT FOR HIS DRUG ADDICTION. PT REPORTED THAT HE GAVE UP METH AND THEN STARTED DRINKING EVERYDAY. PT REPORTED THAT HE HAD COMPLETED TREATMENT AT [facility] IN [place] AND THAT HE "MIGHT" BE INTERESTED IN COMPLETING TREATMENT AGAIN THERE. THIS WORKER GAVE PT THE PHONE NUMBER TO COMPLETE A DRUG AND ALCOHOL ASSESSMENT AND THAT [facility] (THROUGH A [facility]) COULD PAY FOR THE ASSESSMENT COST. THIS WORKER INQUIRED WITH PT REGARDING COST AND ACCESS TO OBTAINING HIS MEDICATIONS AT TIME OF DISCHARGE. PT REPORTED THAT HE NEEDED ASSISTANCE HE DOESN'T THINK THAT HE HAS A JOB NOW THAT HE HAS BEEN IN THE HOSPITAL. PT REPORTED THAT HE IS DISCHARGING TO A FRIEND'S HOME. PT REPORTED THAT HE IS GOING TO BE TEMPTED TO DRINK AGAIN. THIS WORKER OFFERED [facility] IN [facility]. PT REPORTED THAT HE HAS BEEN BANNED FROM THE [facility] IN [facility] BECAUSE HE WAS CAUGHT SMOKING METH AT THE [facility]. PT REPORTED THAT HE WOULD HAVE FOLLOW UP WITH [facility]. THIS WORKER MADE ARRANGEMENTS WITH [facility] AND PT THAT HIS MEDICATIONS WOULD BE FILLED BY [facility] AND THAT HE WOULD BE GIVEN CAB VOUCHER TO GET TO THE PHARMACY AND THEN HOME AFTER. PT WAS ALSO GIVEN THIS WORKER'S CONTACT INFORMATION AND ENCOURAGED TO CONTACT THIS WORKER WITH ANY ADDITIONAL NEEDS EVEN AFTER DISCHARGE. PT WAS GIVEN DRUG AND ALCOHOL RESOURCES AND ENCOURAGED TO FOLLOW UP. THIS WORKER ATTEMPTED TO REACH [facility] TO OBTAIN A DRUG AND ALCOHOL ASSESSMENT. MESSAGE LEFT ON THIS DATE.
--- NOTE | 2016-09-01 15:34 | NUR ---
PRESCRIPTIONS PRESCRIPTIONS FOR BACTRIM DS TABLET 1 TAB PO BID DISPENSE 14 TABS, NICOTINE PATCH 21 MG/24 HOUR 1 REMOVAL TD DAILY DISPENSE 28 PATCH, AND THIAMINE HCL 100 MG TAB, 1 TAB PO DAILY DISPENSE 30 TABS. CALLED INTO [facility] TO [facility]ERIS. Addendum: 09/01/16 at [id number] by KALA LARKIN RN CALLED IN AT [id number]
--- NOTE | 2016-09-01 15:37 | NUR ---
DISCHARGE PT DISCHARGED TO HOME IN GOOD CONDITION. PT TOLERATING REGULAR DIET WELL. DIVERTICULITIS AND DIVERTICULITIS DC INSTRUCTIONS REVIEWED WITH PT. PT VERBALIZED UNDERSTANDING. FOLLOWUP APPOINTMENTS REVIEWED WITH PT. INFORMED PT OF 'S DC ORDERS FOR NO ALCOHOL AND ENCOURAGING ALCOHOL REHAB. PT VERBALIZED UNDERSTANDING. 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 PT EXITED OUT FRONT ENTRANCE.
--- NOTE | 2016-09-01 19:10 | PNF ---
DATE OF SERVICE 09/01/2016 FINDINGS Mr. Chen today states that he wants "something eat." He states his abdominal pain has markedly improved. EXAM VITAL SIGNS: Afebrile, normotensive. Current vitals include temperature 96.4, pulse 66, respirations 16, blood pressure 153/102, SAO2 97% on room air. CHEST: Clear to auscultation bilaterally. HEART: Regular rate and rhythm. Normal S1 and S2 without gallops, murmurs or clicks. ABDOMEN: His abdominal tenderness has markedly improved. I was able to palpate quite firmly today within the left lower quadrant that only seemed to elicit some minimal discomfort to the patient. There was no evidence for any significant guarding. No evidence for hepatomegaly or other abnormal masses. ASSESSMENT 31-year-old gentleman with history for perforated colon most likely secondary to diverticulitis. PLAN I did review the patient's lab work and his white count is 6.6 today. BMP obtained and found to be overall within normal limits. Will go ahead and place the patient on a regular diet today. Will plan on discharge from our facility this afternoon. The patient will need to be discharged on some additional medication, either Cipro, Flagyl or Bactrim for an additional week's duration. On an outpatient basis in four to six weeks I would recommend that the patient undergo a colonoscopy for further evaluation of this abnormality noted on CT scan to document that the patient does indeed have diverticula and not some other underlying etiology for his microperforation. PERLA
[2016-09-02] MEDS ORDERED: FOLIC ACID 1 MG TABLET PO SCH (09:00)
[2016-09-02] MEDS ORDERED: THIAMINE 100 MG TABLET PO SCH (09:00)
--- NOTE | 2016-09-05 12:36 | NUR ---
FOLLOW UP THIS WORKER LEFT MESSAGE WITH WILMAR SCHAFFER AT [phone]. THIS WORKER ALSO LEFT MESSAGE WITH PT ON THIS DATE.
== END 2016-09-01 15:28 | disposition home or self-care (01) | DRG 392 ==
LOC: ED 09:38 → EDHOLD 15:30 → SRG 15:57
PROVIDERS: ADMIT Hospitalist; ATTEND Internal Medicine
DX: K57.80 Diverticulitis of intestine, part unspecified, with perforation and abscess without bleeding (principal); R11.2 Nausea with vomiting, unspecified; F10.20 Alcohol dependence, uncomplicated; F31.9 Bipolar disorder, unspecified; F17.210 Nicotine dependence, cigarettes, uncomplicated; E66.3 Overweight; Z68.27 Body mass index [BMI] 27.0-27.9, adult
CPT/HCPCS: 36415; 80048; 80053; 80069; 80307; 81001; 83605; 83690; 83735; 84100; 84145; 85025; 87040; 96361; 96374; 99406

== ENCOUNTER 2016-09-29 16:15 | Emergency (ER) | payer SELFPAY ==
[~2016-09-29] VITALS: Ht 180.3 cm; Wt 85.9 kg
[~2016-09-29 16:15] MED LIST changes: +ACET-2723 PO; -AMOX500T2 PO; -GABA-336 PO; +GABA-338 PO; -HYDR-3989 PO; +NICO1PAT16 TD; -NO DAILY MEDS; +POLY119P3 PO; +RISP2TAB PO; +SULF1TAB42 PO; +THIA100T13 PO
[2016-09-29 16:16] VITALS: Ht 180.3 cm; Wt 85.9 kg
--- OUTSIDE RECORDS SUMMARY | 2016-09-29 16:20 | XMS REPORT ---
Author Author GENERATED, SYSTEM Organization Unknown Address Unknown Phone Unavailable Care Team Providers Care Human Resource Consultant Name Role Phone UNASSIGNED DOCTOR , DOCTOR PP [phone] Reason For Visit Chief Complaint FEET FEEL [...] H (65-99 MG/DL) *GFR EST NON AFR POLISH >90 ML/MIN *GFRA EST AFR AMER >90 [...]
--- OUTSIDE RECORDS SUMMARY | 2016-09-29 16:20 | XMS REPORT | Continuity of Care Document ---
Author Author [facility] Organization [facility] Address Unknown Phone Unavailable Support Name Relationship Address Phone PRAVEENAJOHNNIE NOLAN Caregiver [address] [place] [address] Unavailable EMILIE FORDE MD Caregiver [address] [place] [address] [place] [address] Unavailable TONIA JACKSON MD Caregiver [address] [place] [id number] Unavailable CHRISTINE OCAMPO Caregiver [address] [place] [address] [address] [facility] [address] Unavailable Insurance Providers Guarantor Jeancarlos Chen Address [address] [place] [address] Email DENIED 16 Payer Self Pay Subscriber's Name Jeancarlos Chen Relationship 18 Self Advance Directives Directive Response Recorded Date/Time Advanced Directives Type None 08/29/16 9:40am Ordered Resuscitation Status Full Code 08/29/16 3:33pm Resuscitation Documents on File No 08/29/16 3:59pm DPOA for Healthcare Only No 08/29/16 4:21pm Living Will No 08/29/16 3:59pm Advanced Directive or Resuscitation Comments FULL CODE 08/29/16 3:59pm Problems Active Problems Medical Problem Onset Date Status Abdominal pain Unknown Acute Bipolar disorder Unknown Chronic Leukocytosis Unknown Resolved Nausea & vomiting Unknown Resolved Overweight (BMI 25.0-29.9) Unknown Chronic Past Problems Medical Problem Onset Date Alcohol withdrawal Unknown Chest wall pain Unknown Dental infection Unknown Perforated diverticulum Unknown Medications Current Home Medications Medication Dose Units Route Directions Days Qty Instructions Start Date Acetaminophen (Tylenol Extra Strength) 500 Mg Tablet 1,000 Mg Oral Q6h/0300 ,0900,1500,2100 as needed for Pain 30 Tablet 09/01/16 Gabapentin 300 Mg Capsule 300 Mg Oral Three Times A Day 08/29/16 Nicotine (Nicotine Patch 21 Mg/24HR) 1 Each Patch.td24 1 Removal Transderm Daily 28 09/01/16 Polyethylene Glycol 3350 (Miralax) 119 Gm Powder 17 G Oral Daily 08/29/16 Risperidone (Risperdal) 2 Mg Tablet 2 Mg Oral Twice A Day Sulfamethoxazole/Trimethoprim (Bactrim Ds Tablet) 1 Each Tablet 1 Tab Oral Twice A Day 14 Tablet Take 1 tablet, by mouth, 2 times a day. 09/01/16 Thiamine (Thiamine Hcl) 100 Mg Tablet 100 Mg Oral Daily 30 Tablet 09/01/16 Social History Social History Problem Response Recorded Date/Time Onset Date Status Alcohol abuse 2016 3:47pm Unknown Active Reason for Hospitalization perforated diverticulum 09/01/2016 2:19pm Not Applicable Not Applicable Chewing Tobacco Status No 2016 9:47am Not Applicable Not Applicable Hx Substance Use Y IV DRUG USE IN THE PAST 2016 9:47am Not Applicable Not Applicable Hx Alcohol Use Y 1-1 1/2 [place] DAILY 2016 9:47am Not Applicable Not Applicable Has the pt used tobacco in the last 12 months Yes 2016 4:00pm Not Applicable Not Applicable Tobacco Usage smoke 10/07/2015 5:12am Not Applicable Not Applicable Query Response Start Date Stop Date Smoking Status Current every day smoker Hospital Discharge Instructions Instructions: Care Instructions: Reason for Hospitalization: perforated diverticulum I was in the hospital because (patient own words): "PAIN IN MY LOWER ABDOMINAL AREA" Discharge Diet: as tolerated Discharge Activity: activity at tolerated Follow Up Appointments: follow up SEPTEMBER 20 AT 11:00 AM WITH LAKEISHA HIGGINS Follow up SEPTEMBER 07 AT 9:15 DIEGO BARRERA APRN at [facility] Pending Lab / Results: Follow up w/ your PCP Patient Instructions: No alcohol. Consider alcohol rehab to help you quit. Wound/Incision Care: N/A Pain Scale Utilized to Educate Patient: 0-10 Pain Scale Pain Management/Treatment: tylenol as directed Expected Signs/Symptoms: mild abdominal pain, occasional loose stools Notify Physician If: Increased abdominal pain, frequent diarrhea, fevers, confusion, rash, frequent nausea or vomiting or any other concerning symptoms During Business Hours:: call Dr Witt or Dr ocampo's office After Business Hours:: [phone] Condition at time of discharge: Good Plan of Care Discharge Date 09/01/16 3:28pm Disposition 01 DISCHARGED HOME, SELF-CARE Instructions/Education Provided Diverticulitis (DC) Diverticulitis Diet (DC) Prescriptions See Medication Section Care Plan and Goals See Discharge Instructions Section Functional Status Query Response Date Recorded Mobility Status Ambulatory September 01, 2016 2:19pm Assistive Devices None September 01, 2016 2:19pm Feeding Ability Independent September 01, 2016 2:19pm Toileting Ability Independent September 01, 2016 2:19pm Grooming Ability Independent September 01, 2016 2:19pm Dressing Ability Independent September 01, 2016 2:19pm Driving Ability Independent September 01, 2016 2:19pm Housework Ability Independent September 01, 2016 2:19pm Meal Preparation Ability Independent September 01, 2016 2:19pm Stair Climbing Ability Independent September 01, 2016 2:19pm Ability to complete ADL's impeded by No change September 01, 2016 2:19pm Cognitive/Perceptual Impairments None September 01, 2016 2:19pm Preferred Method of Learning Listening 2016 4:00pm Allergies, Adverse Reactions, Alerts No known allergies. Immunizations Query Response on File Recorded Date/Time Hx Influenza Vaccination No 08/29/16 4:00pm Hx Pneumococcal Vaccination No 08/29/16 4:00pm Hx Influenza Vaccination No 08/29/16 4:00pm Vital Signs Acute Vital Signs Vital Response Date/Time Temperature (Fahrenheit) 96.4 deg F (96.8 - 99.1) 09/01/2016 8:40am Temperature (Calculated Celsius) 35.38327 degrees C (36.0 - 37.3) 09/01/2016 8:40am Pulse Rate (adult) 66 bpm (60 - 100) 09/01/2016 8:40am Respiratory Rate 16 breaths/min (10 - 20) 09/01/2016 8:40am O2 Sat by Pulse Oximetry 97 % (90 - 100) 09/01/2016 8:40am Oxygen Delivery Method Room Air 09/01/2016 8:40am Blood Pressure 153/102 mm Hg 09/01/2016 8:40am Blood Pressure Source Automatic Cuff 09/01/2016 8:40am Height (Feet) 5 feet 08/31/2016 8:48am Height (Inches) 11.00 inches 08/31/2016 8:48am Weight (Kilograms) 90.900 kg 09/01/2016 8:40am Body Mass Index (BMI) 27.4 2016 3:58pm Results Laboratory Results Test Name Result Units Flags Reference Collection Date/Time Result Date/ Time Comments White Blood Count 6.6 T/MM3 4.5-11.0 09/01/2016 8:09/01/2016 8: 48am Red Blood Count 4.55 M/MM3 4.50-5.90 09/01/2016 8:09/01/2016 8: 48am Hemoglobin 14.2 GM/DL 13.5-17.5 09/01/2016 8:09/01/2016 8:48am Hematocrit 42.2 % 41-53 09/01/2016 8:09/01/2016 8:48am Mean Corpuscular Volume 92.7 UM3 80-100 09/01/2016 8:09/01/2016 8: 48am Mean Corpuscular Hemoglobin 31.2 UUG 26-34 09/01/2016 8:2016 8:48am Mean Corpuscular Hemoglobin Concent 33.6 GM/DL 31-37 09/01/2016 8:09/01/2016 8:48am RDW Standard Deviation 40.7 FL 36.9-50.2 09/01/2016 8:09/01/2016 8 :48am Platelet Count 392 T/MM3 130-400 09/01/2016 8:09/01/2016 8:48am Mean Platelet Volume 10.7 UM3 9.4-12.4 09/01/2016 8:09/01/2016 8: 48am Neutrophils (%) (Auto) 53.9 % 33-66 09/01/2016 8:09/01/2016 8: 48am Lymphocytes (%) (Auto) 27.0 % 23-45 09/01/2016 8:09/01/2016 8: 48am Monocytes (%) (Auto) 14.0 % H 0-9.0 09/01/2016 8:09/01/2016 8:48am Eosinophils (%) (Auto) 3.7 % 0-4 09/01/2016 8:09/01/2016 8:48am Basophils (%) (Auto) 0.8 % 0-2 09/01/2016 8:09/01/2016 8:48am Immature Granulocyte % (Auto) 0.6 % H 0.0-0.5 09/01/2016 8:2016 8:48am Absolute Neutrophils (auto) 3.5 T/MM3 1.8-7.7 09/01/2016 8:2016 8:48am Absolute Lymphocytes (auto) 1.8 T/MM3 1-4.8 09/01/2016 8:2016 8:48am Absolute Monocytes (auto) 0.9 T/MM3 H 0-0.8 09/01/2016 8:2016 8:48am Absolute Eosinophils (auto) 0.2 T/MM3 0-0.5 09/01/2016 8:2016 8:48am Absolute Basophils (auto) 0.1 T/MM3 0-0.2 09/01/2016 8:09/01/2016 8:48am Absolute Immature Granulocyte (auto 0.04 T/MM3 H 0.00-0.03 09/01/2016 8: 09/01/2016 8:48am Neutrophils % (Manual) 85.0 % H 33-66 2016 10:2016 11: 06am Lymphocytes % (Manual) 10.0 % L 23-45 2016 10:2016 11: 06am Monocytes % (Manual) 5.0 % 0-9.0 2016 10:2016 11:06am Absolute Neutrophils (Manual) 14.7 T/MM3 H 1.8-7.7 2016 10: 11:06am Lymphocytes # (Manual) 1.7 T/MM3 1-4.8 2016 10:2016 11 :06am Monocytes # (Manual) 0.9 T/MM3 H 0-0.8 2016 10:2016 11: 06am Red Cell Morphology Comment NORMAL 2016 10:2016 11 :06am Icterus Index < 2 0-7 09/01/2016 8:09/01/2016 9:01am Chemistry Specimen Hemolysis < 15 0-25 09/01/2016 8:09/01/2016 9 :01am 0-25: Specimen Exhibited No Hemolysis. Turbidity < 20 0-20 09/01/2016 8:29am 09/01/2016 9:01am Sodium Level 146 MEQ/L H 134-144 09/01/2016 8:am 09/01/2016 9:01am Potassium Level 4.6 MEQ/L D 3.6-5 09/01/2016 8:09/01/2016 9:01am Chloride Level 107 MEQ/L 98-107 09/01/2016 8:am 09/01/2016 9:01am Carbon Dioxide Level 28 MEQ/L 22-30 09/01/2016 8:2909/01/2016 9: 01am Anion Gap 11 MEQ/L 5-15 09/01/2016 8:09/01/2016 9:01am Blood Urea Nitrogen 13.0 MG/DL 9-09/01/2016 8:09/01/2016 9: 01am Creatinine 0.8 MG/DL 0.8-1.5 09/01/2016 8:09/01/2016 9:01am BUN/Creatinine Ratio 16 RATIO 10-3109/01/2016 8:am 09/01/2016 9:01am Glomerular Filtration Rate Calc 114 09/01/2016 8:09/01/2016 9: 01am Glucose Level 116 MG/DL H 75-110 09/01/2016 8:09/01/2016 9:01am Calculated Osmolality 282 MOSM/KG H 261-280 09/01/2016 8:2016 9:01am Calcium Level 9.4 MG/DL D 8.4-10.2 09/01/2016 8:2909/01/2016 9:02am Phosphorus Level 5.1 MG/DL H 2.5-4.5 09/01/2016 8:09/01/2016 9: 01am Total Bilirubin 0.60 MG/DL 0.20-1.30 08/30/2016 4:37am 08/30/2016 5: 28am Alkaline Phosphatase 120 U/L D 38-126 08/30/2016 4:37am 08/30/2016 5: 30am Total Protein 6.6 G/DL 6.3-8.2 08/30/2016 4:37am 08/30/2016 5:28am Albumin 3.7 G/DL 3.5-5.0 09/01/2016 8:29am 09/01/2016 9:01am Globulin 3.2 G/DL 2.4-3.6 08/30/2016 4:37am 08/30/2016 5:28am Albumin/Globulin Ratio 1.1 RATIO 1.1-2.2 08/30/2016 4:37am 08/30/2016 5 :28am Aspartate Amino Transf (AST/SGOT) 26 U/L 17-59 08/30/2016 4:37am 2016 5:28am Alanine Aminotransferase (ALT/SGPT) 34 U/L 21-72 08/30/2016 4:37am 5:28am Lipase 17 U/L L 23-300 2016 10:22am 2016 10:48am Magnesium Level 2.4 MG/DL H 1.6-2.3 08/30/2016 4:37am 08/30/2016 10: 32am Plasma Lactate 1.0 MMOL/L 0.6-2.2 2016 3:32pm 2016 4:08pm Procalcitonin 1.14 NG/ML 2016 3:32pm 2016 4:58pm PCT </= 0.5 ng/mL - sepsis not likely; PCT >0.5 and </=2 ng/mL - sepsis possible; PCT >2 ng/mL - sepsis likely; PCT >/=10 ng/mL - systemic inflammatory response - sepsis or septic shock highly indicated. Alcohol, Quantitative <10 MG/DL <10 2016 10:22am 2016 10: 44am Urine Collection Type CLE[place]ATCH-MIDSTREAM 2016 11:53am 08/29 12:02pm Urine Color YELLOW YELLOW 2016 11:53am 2016 12:02pm Urine Turbidity CLEAR CLEAR 2016 11:53am 2016 12:02pm Urine Specific [place] 1.025 1.015-1.025 2016 11:53am 2016 12:02pm Urine pH 6.0 5.0-8.0 2016 11:53am 2016 12:02pm Urine Leukocyte Esterase NEGATIVE NEGATIVE 2016 11:53am 2016 12:02pm Urine Nitrite NEGATIVE NEGATIVE 2016 11:53am 2016 12: 02pm Urine Protein 2+ A NEGATIVE 2016 11:53am 2016 12:02pm Urine Glucose (UA) NEGATIVE NEGATIVE 2016 11:53am 2016 12 :02pm Urine Ketones 3+ A NEGATIVE 2016 11:53am 2016 12:02pm Urine Urobilinogen 2.0 EU/DL NORMAL 2016 11:53am 2016 12: 02pm Urine Bilirubin 2+ A NEGATIVE 2016 11:53am 2016 12:02pm Urine Blood 1+ A NEGATIVE 2016 11:53am 2016 12:02pm Urine WBC 0-1 /HPF 0-5 2016 11:53am 2016 12:17pm Urine RBC 0-1 /HPF 0-3 2016 11:53am 2016 12:17pm Urine Bacteria 2+ H NEGATIVE 2016 11:53am 2016 12:17pm Urine Mucus PRESENT 2016 11:53am 2016 12:17pm Urine Culture Indicated CULT NOT INDICATED 2016 11:53am 08/29 12:17pm Microbiology Results Procedure Source Organism/Result Collection Date/Time Result Date/Time Result Status Blood Culture Peripheral/Iv Start NO GROWTH AFTER 72 HOURS 2016 3: 33pm 09/01/2016 3:40pm Preliminary Name: JEANCARLOS CHEN Unit #: [id number] : 1985 Sex: M DISCHARGE SUMMARY Admit Date: 08/29/16 Report #: [id number] [facility] Date Date DATE: 09/01/16 TIME: 11:57 Attending Physician Tonia Jackson MD Admitting Physician Tonia Jackson MD Consulting Physician Juan Witt MD,Facs,Cws Admitting Diagnosis 1. Perforated Diverticulum Discharge Diagnosis Perforated diverticulum Bipolar disorder Alcohol abuse Overweight Procedures None Laboratory Laboratory Tests Test 08/31/16 04:49 08/31/16 04:50 09/01/16 08:29 White Blood Count 7.0T/MM3 (4.5-11.0) 6.6T/MM3 (4.5-11.0) Red Blood Count 4.09M/MM3 (4.50-5.90) 4.55M/MM3 (4.50-5.90) Hemoglobin 12.8GM/DL (13.5-17.5) 14.2GM/DL (13.5-17.5) Hematocrit 38.4% (41-53) 42.2% (41-53) Mean Corpuscular Volume 93.9UM3 (80-100) 92.7UM3 (80-100) Mean Corpuscular Hemoglobin 31.3UUG (26-34) 31.2UUG (26-34) Mean Corpuscular Hemoglobin Concent 33.3GM/DL (31-37) 33.6GM/DL (31-37) RDW Standard Deviation 41.4FL (36.9-50.2) 40.7FL (36.9-50.2) Platelet Count 360T/MM3 (130-400) 392T/MM3 (130-400) Mean Platelet Volume 11.3UM3 (9.4-12.4) 10.7UM3 (9.4-12.4) Immature Granulocyte % (Auto) 0.4% (0.0-0.5) 0.6% (0.0-0.5) Neutrophils (%) (Auto) 57.2% (33-66) 53.9% (33-66) Lymphocytes (%) (Auto) 22.2% (23-45) 27.0% (23-45) Monocytes (%) (Auto) 16.8% (0-9.0) 14.0% (0-9.0) Eosinophils (%) (Auto) 3.0% (0-4) 3.7% (0-4) Basophils (%) (Auto) 0.4% (0-2) 0.8% (0-2) Absolute Immature Granulocyte (auto 0.03T/MM3 (0.00-0.03) 0.04T/MM3 (0.00-0.03) Absolute Neutrophils (auto) 4.0T/MM3 (1.8-7.7) 3.5T/MM3 (1.8-7.7) Absolute Lymphocytes (auto) 1.6T/MM3 (1-4.8) 1.8T/MM3 (1-4.8) Absolute Monocytes (auto) 1.2T/MM3 (0-0.8) 0.9T/MM3 (0-0.8) Absolute Eosinophils (auto) 0.2T/MM3 (0-0.5) 0.2T/MM3 (0-0.5) Absolute Basophils (auto) 0.0T/MM3 (0-0.2) 0.1T/MM3 (0-0.2) Turbidity < 20 (0-20) < 20 (0-20) Sodium Level 144MEQ/L (134-144) 146MEQ/L (134-144) Potassium Level 3.8MEQ/L (3.6-5) 4.6MEQ/L (3.6-5) Chloride Level 106MEQ/L (98-107) 107MEQ/L (98-107) Carbon Dioxide Level 24MEQ/L (22-30) 28MEQ/L (22-30) Anion Gap 14MEQ/L (5-15) 11MEQ/L (5-15) Blood Urea Nitrogen 11.0MG/DL (9-20) 13.0MG/DL (9-20) Creatinine 0.8MG/DL (0.8-1.5) 0.8MG/DL (0.8-1.5) Glomerular Filtration Rate Calc 114 114 BUN/Creatinine Ratio 14RATIO (6-26) 16RATIO (6-26) Glucose Level 88MG/DL (75-110) 116MG/DL (75-110) Calculated Osmolality 275MOSM/KG (261-280) 282MOSM/KG (261-280) Calcium Level 8.7MG/DL (8.4-10.2) 9.4MG/DL (8.4-10.2) Icterus Index < 2 (0-7) < 2 (0-7) Chemistry Specimen Hemolysis < 15 (0-25) < 15 (0-25) Phosphorus Level 5.1MG/DL (2.5-4.5) Albumin 3.7G/DL (3.5-5.0) Microbiology Microbiology Date/Time Source Procedure Growth Status 08/29/16 15:33 Peripheral/Iv Start Blood Culture - Preliminary NO GROWTH AFTER 48 HOURS Resulted 08/29/16 15:32 Peripheral/Iv Start Blood Culture - Preliminary NO GROWTH AFTER [address] abdomen and pelvis Findings: CT ABDOMEN: Included portions of the lung bases are clear. Heart size normal. No pleural effusion. The liver, spleen, kidneys, pancreas, and adrenal glands are normal. The gallbladder is thin walled and nondistended, without stones. The abdominal aorta is non-aneurysmal, without significant atherosclerotic disease. There is no retroperitoneal or mesenteric adenopathy. CT PELVIS: There is a focal area of diverticulitis in the left pelvis near the pelvic brim with a probable small contained perforation. No peridiverticular abscess. There is no pelvic sidewall adenopathy. No free fluid. No definite bony destructive process. IMPRESSION: Short segment of diverticulitis in the left lower pelvis with a adjacent contained small focus of gas suggesting contained perforation. No evidence for free perforation. No peridiverticular abscess. History of Present Illness Jeancarlos Chen is a 31 y/o male who presented to [facility] ED on 08/29/16 for further evaluation of LLQ pain. He states his symptoms started about a month ago. His roommate's girlfriend had n/v/d, and he became sick with the same illness just as she felt better. He continued to have intermittent pain, especially to LLQ, along with nausea, night sweats, fever and chills. He later become constipated, and his symptoms improved after he had a bowel movement. Last bowel movement was 1 week ago. He's had some lower back discomfort, and for a while he thought he had a kidney stone (though he's never had one before and denies hematuria). His pain has also started to spread across his lower abdomen towards the right. He denies seeing any blood or having dark colored stools. He hasn't felt much like eating or drinking anything. He has felt weak and lightheaded. He denies any respiratory symptoms, dysuria, or rashes. Labs in the ED showed leukocytosis with WBC of 17.3. CT abdomen/pelvis demonstrated diverticulitis in the left lower pelvis with adjacent contained small focus of gas suggesting contained perforation. He received IVF and Invanz. Dr. Witt was consulted. Dr. Forde admitted the patient for systemic antibiotics, symptom relief, and surgical consultation. LOS is expected to exceed 2 overnights. Hospital Course 09/01/2016 The patient states he is feeling well today. He denies any abdominal pain. He is eating regular food without difficulties. He has had some soft bowel movements. No nausea or vomiting. No shortness of breath. No confusion. No tremulousness. His legs are a little restless and he states that that's common for him after he takes his Risperdal. Overall, the patient has done quite well and appears to be ready for dismissal to home. On exam today he is alert and oriented 3 and in no acute distress. He does not have any tremulousness of his hands. His legs are a little bit restless. His thought processes are normal. Chest is clear to auscultation. Cardiovascular reveals a regular rate and rhythm. Abdomen is soft and nontender and nondistended with positive bowel sounds. He has not required any narcotics for over 48 hours. He had a shot of Toradol yesterday afternoon but has not required any other pain medication. Hospital course The patient was admitted with diagnosis of ruptured diverticulum which was contained. Dr. Witt did evaluate the patient and he recommended IV Invanz and bowel rest. The patient has done quite well. Leukocytosis has resolved. Abdominal pain has resolved. He has tolerated restarting a regular diet. Regarding his ruptured diverticulum, it was felt that he was stable for dismissal to home today. We'll discontinue Invanz after today's dose and will start Bactrim DS 1 by mouth twice a day for 7 days to start tomorrow. It was found during this hospital course that the patient is drinking a large amount of alcohol. He is uncertain if he wants to quit drinking alcohol but is open to talking with our psychiatric social worker supervisor regarding treatment options. He will talk with the psychiatric social worker supervisor today prior to discharge. I did recommend to the patient that he quit drinking alcohol. The patient also has bipolar disorder and has been taking his usual Resporal which she states is working well. He did state that it causes his legs to be somewhat restless and I did recommend that he discuss this with Dr. Ocampo. Regarding tobaccoism, the patient is on nicotine patch and will give him a prescription for nicotine patch at discharge if he decides to quit smoking. Patient will need follow-up in the next one week with Dr. Ocampo. The patient should follow-up in the next 2-[address] Witt and they will consider a colonoscopy at that time. If the patient should develop excessive diarrhea, increased abdominal pain, frequent nausea or vomiting, any rash, any confusion, or any other concerning symptoms he should seek medical attention. The patient was given a cab voucher on the day of dismissal. Greater than 30 minutes of time was spent seeing and evaluating the patient on dismissal day. Problems: (1) Perforated diverticulum Status: Acute Assessment & Plan: 08/29/16 - CT Short segment of diverticulitis in the left lower pelvis with adjacent contained small focus of gas suggesting contained perforation. No evidence for free perforation. No peridiverticular abscess. (2) Leukocytosis Status: Resolved Assessment & Plan: POA (3) Abdominal pain Status: Acute (4) Nausea & vomiting Status: Resolved (5) Bipolar disorder Status: Chronic Assessment & Plan: Ran out of [facility] on 08/25/16 (6) Alcohol abuse Status: Chronic Assessment & Plan: drinks daily (7) Overweight (BMI 25.0-29.9) Status: Chronic DVT Prophylaxis: SCD'S Code Status Full Code Home Meds Active Scripts Sulfamethoxazole/Trimethoprim (Bactrim Ds Tablet) 1 Each Tablet, 1 TAB PO BID, # 14 TAB Take 1 tablet, by mouth, 2 times a day. Prov:TONIA JACKSON MD 09/01/16 Thiamine (Thiamine HCl) 100 Mg Tablet, 100 MG PO DAILY, #30 TAB Prov:TONIA JACKSON MD 09/01/16 Acetaminophen (Tylenol Extra Strength) 500 Mg Tablet, 1000 MG PO Q6HR Y for PAIN , #30 TAB Prov:TONIA JACKSON MD 09/01/16 Nicotine (Nicotine Patch 21 mg/24hr) 1 Each Patch.td24, 1 REMOVAL TD DAILY, #28 Prov:TONIA JACKSON MD 09/01/16 Reported Medications Polyethylene Glycol 3350 (Miralax) 119 Gm Powder, 17 G PO DAILY 08/29/16 Risperidone (Risperdal) 2 Mg Tablet, 2 MG PO BID 08/29/16 Gabapentin (Gabapentin) 300 Mg Capsule, 300 MG PO TID 08/29/16 Face to Face Encounter I met with patient on the day of dismissal and discussed follow up appointments , medications, and safety plan. Discharge Disposition Dismiss to home in stable condition Copies To 1: CHRISTINE OCAMPO Copies To 2: JUAN WITT MD, FACS, CWS TONIA JACKSON MD Sep 01, 2016 12:00 Addendum: TONIA JACKSON MD on 09/01/16 @ 13:00 I did call and talk with Dr. Christine Ocampo today regarding the patient's hospital course and discharge plans. Procedures No known history of procedures. Encounters Encounter Location Arrival/Admit Date Discharge/Depart Date Attending Provider Discharged Inpatient [facility] 08/29/16 3:30pm 09/01/16 3:28pm TONIA JACKSON MD
--- NOTE | 2016-09-29 16:31 | ERPDOC ---
Departure Disposition Decision Date: September 29, 2016 (TAYLA PUTNAM MD) Disposition Decision Time: 18:45 (STEPHANIE CHAMBERS MD) Disposition: 01 DISCHARGED HOME, SELF-CARE Impression Impression (TAYLA PUTNAM MD) Impression: Primary Impression: Diverticulitis Diverticulitis site: large intestine Diverticulitis bleeding: without bleeding Diverticulitis complication: with abscess Qualified Codes: K57.20 - Diverticulitis of large intestine with perforation and abscess without bleeding Severity: Moderate (TAYLA PUTNAM MD) Condition: Stable Seen By: Physician only (TAYLA PUTNAM MD) Referrals: KOLBY OCAMPO (Family) Follow-up for evaluation JUAN WITT MD, FACS, CWS Call his office for follow-up appointment colonoscopy Patient Instructions: Diverticulitis (ED) Problems/Meds/Labs Reviewed?: Yes Medications reviewed and manag: Yes (TAYLA PUTNAM MD) Follow up care ordered?: Yes Mental Status: Alert, Oriented (TAYLA PUTNAM MD) Scripts Sulfamethoxazole/Trimethoprim (Bactrim Ds Tablet) 1 Each Tablet 1 TAB PO BID, #14 TAB 0 Refills Prov: TAYLA PUTNAM MD 09/29/16 Hydrocodone/Apap ([place] 5-325 Tablet) 5-325 Tablet 1-2 TAB PO Q6H Y for PAIN, #20 TAB Prov: TAYLA PUTNAM MD 09/29/16 HPI - Abdominal Pain General Chief Complaint: Abdominal Pain Stated Complaint: ABD PAIN Time Seen by Provider: 16:31 (TAYLA PUTNAM MD) Time Seen by Provider: 18:39 (STEPHANIE CHAMBERS MD) HPI - Abdominal Pain Allergies: Coded Allergies: No Known Allergies (Unverified , 08/29/16) Past History Patient Surgical History Denies. (TAYLA PUTNAM MD) Past Medical History Metabolic: hypertension Psychological: alcohol abuse, drug abuse (TAYLA PUTNAM MD) Surgical History Denies Surgeries (TALYA PUTNAM MD) Family History Family PMH: FOUND: other (TAYLA PUTNAM MD) Vaccines Hx Influenza Vaccination: No Hx Pneumococcal Vaccination: No (TAYLA PUTNAM MD) Social History Does patient use chewing tobac: Yes # of Packs/Tins per Day: 0.5 Second Hand Exposure: Yes Substance Use Type: former substance user, amphetamines Substance last used: days (ago) Alcohol Intake: daily, 2+ drinks per day Last Drink: unknown Marital Status: Single Sexuality: female partner Housing: house Service: No Current Occupational Status: employed 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, 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 Occupational Hazard: No Advance Directives: Yes Full Code (TAYLA PUTNAM MD) Physical Exam General Vitals and Pain First Documented Vital Signs Date Time Temp Pulse Resp B/P Pulse Ox O2 Delivery O2 Flow Rate FiO2 09/29/16 16:16 98.0 97 18 120/94 99 Room Air (STEPHANIE CHAMBERS MD) Vitals and Pain Weight: Kilograms: 85.900 Height (feet): 5 Height (inches): 11.00 Triage Pain Scale: (TAYLA PUTNAM MD) Progress Results/Orders Orders Procedure Category Date Status Time Iv Lock (Ed Only) EDM 09/29/16 Transmitted 16:33 Nothing By Mouth (Ed EDM 09/29/16 Transmitted Only) 16:33 Cbc W/Auto LAB 09/29/16 Complete Diff-Reflex Manual 16:33 Cmp - Comprehensive LAB 09/29/16 Complete Metabolic 16:33 Lipase LAB 09/29/16 Complete 16:33 Ua, Dip Wreflex LAB 09/29/16 Complete Microsc & Muck Operator 16:33 Hydromorphone PHA 09/29/16 Complete (Dilaudid) 16:45 Ondansetron Inj PHA 09/29/16 Complete (Zofran) 16:45 Ethanol LAB 09/29/16 Complete 16:33 Normal Saline (Normal PHA 09/29/16 Complete Saline Iv) 16:45 Ct Abd/Pelvis CT 09/29/16 Taken W/Contrast Only 17:27 Iohexol (Omnipaque) PHA 09/29/16 Complete 17:34 Normal Saline (Ns) PHA 09/29/16 Complete 17:35 Saline Flush (Iv PHA 09/29/16 Complete Flush) 17:35 (STEPHANIE CHAMBERS MD) Lab Results Laboratory Tests Test 09/29/16 16:59 09/29/16 18:27 White Blood Count 9.0T/MM3 Red Blood Count 5.05M/MM3 Hemoglobin 15.7GM/DL Hematocrit 46.1% Mean Corpuscular Volume 91.3UM3 Mean Corpuscular Hemoglobin 31.1UUG Mean Corpuscular Hemoglobin Concent 34.1GM/DL RDW Standard Deviation 45.0FL Platelet Count 186T/MM3 Mean Platelet Volume 10.7UM3 Immature Granulocyte % (Auto) 0.1% Neutrophils (%) (Auto) 77.7% Lymphocytes (%) (Auto) 12.7% Monocytes (%) (Auto) 8.7% Eosinophils (%) (Auto) 0.6% Basophils (%) (Auto) 0.2% Absolute Immature Granulocyte (auto 0.01T/MM3 Absolute Neutrophils (auto) 7.0T/MM3 Absolute Lymphocytes (auto) 1.1T/MM3 Absolute Monocytes (auto) 0.8T/MM3 Absolute Eosinophils (auto) 0.1T/MM3 Absolute Basophils (auto) 0.0T/MM3 Turbidity < 20 Sodium Level 142MEQ/L Potassium Level 4.3MEQ/L Chloride Level 100MEQ/L Carbon Dioxide Level 23MEQ/L Anion Gap 19MEQ/L Blood Urea Nitrogen 19.0MG/DL Creatinine 0.9MG/DL Glomerular Filtration Rate Calc 99 BUN/Creatinine Ratio 21RATIO Glucose Level 90MG/DL Calculated Osmolality 275MOSM/KG Calcium Level 9.9MG/DL Total Bilirubin 1.00MG/DL Icterus Index < 2 Aspartate Amino Transf (AST/SGOT) 43U/L Alanine Aminotransferase (ALT/SGPT) 57U/L Alkaline Phosphatase 108U/L Total Protein 7.5G/DL Albumin 4.8G/DL Globulin 2.7G/DL Albumin/Globulin Ratio 1.8RATIO Lipase 33U/L Chemistry Specimen Hemolysis < 15 Alcohol, Quantitative <10MG/DL Urine Collection Type Voided-not cc-midstr Urine Color Yellow Urine Turbidity Clear Urine pH 6.5 Urine Specific [place] <=1.005 Urine Protein Negative Urine Glucose (UA) Negative Urine Ketones 2+ Urine Blood Trace-lysed Urine Nitrite Negative Urine Bilirubin Negative Urine Urobilinogen 0.2EU/DL Urine Leukocyte Esterase Negative Urinalysis Comment Microscopic not ind. (STEPHANIE CHAMBERS MD) Medications Current ED Medications Hydromorphone HCl (Dilaudid) 0.5 mg O ONCE IV Last administered on 09/29/16t 17:11; Start 09/29/16 at 16:45; Stop 09/29/16 at 16:46; Status DC Ondansetron HCl 4 mg 4 mg O ONCE IV Last administered on 09/29/16 17:08; Start 09/29/16 at 16:45; Stop 09/29/16 at 16:46; Status DC Sodium Chloride (Normal Saline IV) 1,000 ml @ 999 mls/hr Q1H1M ONCE IV Last administered on 09/29/16 17:07; Start 09/29/16 at 16:45; Stop 09/29/16 at 17:45 ; Status DC Iohexol 1 bottle 1 bottle STK-MED ONCE .ROUTE ; Start 09/29/16 at 17:34; Stop at 17:35; Status DC Sodium Chloride (NS) 100 ml @ As Directed STK-MED ONCE .ROUTE ; Start 09/29/16 at 17:35; Stop 09/29/16 at 17:36; Status DC Sodium Chloride (Iv Flush) 10 ml STK-MED ONCE .ROUTE ; Start 09/29/16 at 17:35; Stop 09/29/16 at 17:36; Status DC (STEPHANIE CHAMBERS MD) TAYLA PUTNAM MD September 29, 2016 16:31 STEPHANIE CHAMBERS MD September 29, 2016 18:45
--- OUTSIDE RECORDS SUMMARY | 2016-09-29 16:40 | XMS REPORT ---
Author Author GENERATED, SYSTEM Organization Unknown Address Unknown Phone Unavailable Care Team Providers Care Senior Support Analyst Name Role Phone UNASSIGNED DOCTOR , DOCTOR PP [phone] Reason For Visit Chief Complaint FEET FEEL [...] H (65-99 MG/DL) *GFR EST NON AFR PRYDEINIG >90 ML/MIN *GFRA EST AFR AMER >90 [...]
[2016-09-29] MEDS ORDERED: NORMAL SALINE 1,000 ML IV ONE (16:45)
[2016-09-29] MEDS ORDERED: ONDANSETRON 4mg/2ml INJECTION IV ONE (16:45)
[2016-09-29] MEDS ORDERED: HYDROMORPHONE 2mg/ml INJECTION IV ONE (16:45)
[2016-09-29 17:05] LABS: BASOPHILS % (AUTO) 0.2 % (0-2); EOSINOPHILS # (AUTO) 0.1 T/MM3 (0-0.5); EOSINOPHILS % (AUTO) 0.6 % (0-4); HCT - HEMATOCRIT 46.1 % (41-53); HGB - HEMOGLOBIN 15.7 GM/DL (13.5-17.5); IMMATURE GRANULOCYTE # (AUTO) 0.01 T/MM3 (0.00-0.03); IMMATURE GRANULOCYTE % (AUTO) 0.1 % (0.0-0.5); LYMPHOCYTES # (AUTO) 1.1 T/MM3 (1-4.8); LYMPHOCYTES % (AUTO) 12.7 % (23-45); MEAN CORPUSCULAR HGB 31.1 UUG (26-34); MEAN CORPUSCULAR HGB CONC(MCHC 34.1 GM/DL (31-37); MEAN CORPUSCULAR VOLUME 91.3 UM3 (80-100); MEAN PLATELET VOLUME 10.7 UM3 (9.4-12.4); MONOCYTES # (AUTO) 0.8 T/MM3 (0-0.8); MONOCYTES % (AUTO) 8.7 % (0-9.0); NEUTROPHILS % (AUTO) 77.7 % (33-66); RED BLOOD COUNT 5.05 M/MM3 (4.50-5.90)
[2016-09-29 17:18] LABS: ALBUMIN 4.8 G/DL (3.5-5.0); ALBUMIN/GLOBULIN RATIO 1.8 RATIO (1.1-2.2); ALKALINE PHOSPHATASE 108 U/L (38-126); ALT (SGPT) 57 U/L (21-72); ANION GAP 19 MEQ/L (5-15); AST (SGOT) 43 U/L (17-59); BUN/CREATININE RATIO 21 RATIO (6-26); CALCIUM 9.9 MG/DL (8.4-10.2); CHLORIDE 100 MEQ/L (98-107); CO2 - CARBON DIOXIDE 23 MEQ/L (22-30); CREATININE 0.9 MG/DL (0.8-1.5); ETHANOL <10 MG/DL (<10); GLOMERULAR FILTRATION RATE 99; GLUCOSE 90 MG/DL (75-110); POTASSIUM 4.3 MEQ/L (3.6-5); SODIUM 142 MEQ/L (134-144); TOTAL PROTEIN 7.5 G/DL (6.3-8.2)
[2016-09-29 17:27] LABS: LIPASE 33 U/L (23-300)
[2016-09-29] MEDS ORDERED: IOHEXOL 300 MG/ML 100ml INJECTION ONE (17:34)
[2016-09-29] MEDS ORDERED: NORMAL SALINE 100 ML ONE (17:35)
[2016-09-29] MEDS ORDERED: SALINE FLUSH 10ml SYRINGE ONE (17:35)
--- NOTE | 2016-09-29 17:37 | NUR ---
IMAGING PT TO IMAGING AT THIS TIME VIA CART.
--- NOTE | 2016-09-29 17:50 | NUR ---
IMAGING PT RETURN FROM IMAGING AT THIS TIME. NO SIGN OF DISTRESS.
[2016-09-29] MEDS ORDERED: HYDR-3989 PO (18:24)
[2016-09-29] MEDS ORDERED: SULF1TAB42 PO (18:24)
--- NOTE | 2016-09-29 18:25 | NUR ---
BR PT AMBULATES TO BR AT THIS TIME AND VOIDS, URINE SAMPLE IS COLLECTED FOR LAB TESTING.
[2016-09-29 18:36] LABS: BLOOD, URINE TRACE-LYSED (NEGATIVE); COLOR,URINE YELLOW (YELLOW); LEUKOCYTE ESTERASE ,URINE NEGATIVE (NEGATIVE); NITRITE,URINE NEGATIVE (NEGATIVE); UROBILINOGEN,URINE 0.2 EU/DL (NORMAL)
[2016-09-29 19:03] VITALS: BP 134/80; PULSE 87; RESP 12; TEMP 98; O2SAT 93
--- NOTE | 2016-09-29 19:03 | NUR ---
DEPART PT IS DISCHARGED AT THIS TIME, INSTRUCTIONS ARE REVIEWED AND UNDERSTANDING IS VOICED. PT LEAVES AMBULATORY.
--- NOTE | 2016-09-30 08:16 | DI ---
Indication: ITS.REASON: left lower quadrant periumbilical abdominal pain history of PROCEDURE: CT ABD/PELVIS W/CONTRAST ONLY: Encounter: Initial Comparison: August 29, 2016 Technique: Axial CT images were performed through the abdomen and pelvis after the administration of intravenous contrast. Coronal and sagittal two-dimensional reformats. Automated Exposure Control and Iterative Reconstruction dose reducing techniques were utilized. Contrast: Omnipaque 300 100 mL Findings: The liver shows slight decrease in attenuation relative to the spleen that could represent fatty infiltration. No enhancing mass or bile duct dilatation. The gallbladder, spleen, pancreas and adrenal glands are within normal limits. Small low-attenuation focus in the right kidney, too small to characterize. Kidneys are otherwise normal. No abdominal or pelvic lymphadenopathy. Bladder is normal. Prostate and rectum are normal. Small amount of free fluid in the pelvis. The prior area of inflammation in the sigmoid colon has improved. The area of extraluminal gas has decreased in size with a small focus remaining on axial image #66 measuring 8 mm in diameter. There is new significant inflammation within the ileum with wall thickening that has developed since the prior study. Mesenteric edema is seen adjacent to this. No evidence of small bowel obstruction however. The appendix is gas-filled and normal. Bone windows show no acute findings. Impression: 1. New significant bowel inflammation involving the ileum which could be due to infectious or inflammatory enteritis. 2. Improving sigmoid diverticulitis with evidence of a small contained perforation that has decreased in size. There is a preliminary report by [employer]. .
== END 2016-09-29 19:03 | disposition home or self-care (01) ==
LOC: ED 16:15
DX: K57.20 Diverticulitis of large intestine with perforation and abscess without bleeding (principal)
CPT/HCPCS: 36000; 36415; 80053; 80307; 81003; 83690; 85025